=== PATIENT | male | born 1945 | race Caucasian/White ===

== ENCOUNTER 2023-10-13 14:41 | Inpatient (IN) | payer MEDICARE, OTHER, SELFPAY ==
[2023-10-12] VITALS (10 sets, daily range): BP systolic 133–156; BP diastolic 47–78; BMI 39.2; BMI 36.4
[2023-10-12 09:48] LABS: INR 1.09; PT 13.9 Sec (11.4-14.6)
[2023-10-12 09:49] LABS: ALT (SGPT) 25 U/L (0-50); APTT 26.3 Sec (23.4-35.0); AST (SGOT) 35 U/L (17-59); Albumin 3.9 g/dl (3.5-5.0); Alkaline Phosphatase 51 U/L (38-126); Blood Urea Nitrogen 29 mg/dl (9-20); Calcium 8.8 mg/dl (8.4-10.2); Carbon Dioxide 23 mmol/L (22-30); Chloride 106 mmol/L (98-107); Estimated Creatinine Clearance 93 ml/min; Glucose 208 mg/dl (70-99); Potassium 4.2 mmol/L (3.5-5.1); Sodium 140 mmol/L (135-145); Total Bilirubin 0.4 mg/dl (0.2-1.3); Total Protein 6.8 g/dl (6.3-8.2); eGFR > 60.00
--- NOTE | 2023-10-12 09:52 | ED.GENMED ---
History of Present Illness
General
Chief Complaint: Fall
Source: patient and spouse
Exam Limitations: none
Time Seen by Provider: 10/12/23 09:33
Nursing documentation reviewed up to this point in time: agreed with
Travel History
Have you had any contact with someone who has COVID-19?: No
Do you have any symptoms of coronavirus? Fever > 100 degrees, chills, cough, shortness of breath, sore throat, loss of taste or smell, muscle aches, or headache?: No
History of Present Illness
History of Present Illness:
78-year-old male with past medical history of hypertension, hyperlipidemia, CAD, Parkinson disease, dementia who presents to the emergency room accompanied by his for evaluation after a fall. Patient is somewhat limited historian due to his
dementia. He cannot exactly remember how he fell down�he says that 'they always tell me where socks or sneakers so I do not slip.' Patient's is at bedside says that she left for the gym at 7 AM and returned back at 8 AM. She says that when
she left she had given patient breakfast and was sitting at the lung room table. When she returned an hour later he was on the ground in the dining room. Patient cannot recall if he hit his head. He cannot recall if he lost consciousness. He
complains mainly of pain in his right shoulder. He denies any headache, neck pain. Denies any back pain. Denies any chest or abdominal pain. Denies any shortness of breath. Denies any pain in his lower extremities. He does report feeling
generally weak and fatigued and he has had a mild cough for the past 3 days in the setting of what he believes is a cold. Has not had any fevers or chills. Denies any shortness of breath. Patient is on aspirin but no other blood thinners.
Past History
Past History
ED Past Medical History: HTN, Hypercholesterolemia, Other and Other (, bipolar, 'Balance problems')
ED Past Surgical History: Cardiac (Stent), Cholecystectomy and Orthopedic (Back surgery 2009)
Social History
Tobacco: Non-smoker
Alcohol: Occasional
Drug: None
Personal:
Living: with family
Family History
Family History: Other (mother and uncles with brain tumors, father with a mitral valve replacement)
Review of Systems
Review of Systems
All Other Systems: ROS reviewed and negative except as documented in HPI and ROS
Constitutional: Reports fatigue; Denies fever
Respiratory: Reports cough; Denies trouble breathing
Cardiac: Denies chest pain or palpitations
ABD/GI: Denies abdominal pain, nausea or vomiting
: Denies flank pain
Musculoskeletal: Reports joint pain (Right shoulder pain); Denies neck pain or back pain
Neurological: Denies dizzy, headache, weakness or numbness
Phy Exam
Physical Exam
Physical Exam:
General: Awake, alert; no acute distress
Head: Normocephalic, minor abrasion to the top of the head
Eyes: Conjunctiva normal, pupils equal round, reactive to light bilaterally
Throat: Airway intact, handling secretions
Neck: Trachea midline, no cervical spine tenderness
Back: No tenderness in the thoracic or lumbar spine
Lungs: Clear to auscultation bilaterally, no wheezing, rales, rhonchi; occasional cough
Heart: Regular rate and rhythm, no murmurs, gallops, or rubs
Abd: Soft, non distended, nontender
Neuro: Cranial nerves grossly intact, speech fluid, motor and sensory function is intact in all extremities
Extremities: Patient has some tenderness of the anterior humeral head/upper arm on the right but no bruising or swelling; no tenderness of the scapula or clavicle; he does have pain on flexion of the right shoulder; he has no pain in the right elbow
or wrist and moves the joints comfortably without pain; rest of extremities atraumatic and he moves them through full comfortable range of motion; he has good strong pulses in all extremities including specifically a strong right radial pulse
Scores
Heart Failure Risk
Heart Failure Risk Score: Not Applicable
Heart Score for Chest Pain Patients
STEMI patient?: Not applicable
Withdrawal Assessment of Alcohol
Withdrawal Assessment Completed?: Not applicable
Course
Orders/Labs/Results
Orders:
Orders
10/12/23 09:09
EKG [Electrocardiogram (*1)] Urgent
Reason for Study: Vertigo / Dizzy
10/12/23 09:10
EKG- Treatment ONCE
10/12/23 09:11
Comprehensive Metabolic Panel Urgent
NT-proBNP Urgent
Comment: ADD ON
PTT Urgent
Prothrombin Time Urgent
Troponin I Urgent
10/12/23 09:12
Complete Blood Count/With Diff Urgent
10/12/23 09:43
CT Head W/o Iv Contrast Urgent
Comment:
Reason For Exam: unwitnessed fall, unsure LOC
CR Shoulder - Right Min 2 View Urgent
Comment:
Reason For Exam: right shoulder pain
10/12/23 09:44
CR Chest - 2 Views Urgent
Comment:
Reason For Exam: cough
10/12/23 10:00
COVID-19 Antigen Urgent
Source: Nasal Swab
Urinalysis Reflex To Culture Urgent
Date Specimen was Collected: 10/12/23
Time Specimen was Collected: 09:52
Urine Microscopic Reflex Cult Urgent
Influenza A+B Rapid Molecular Urgent
SELAM Source: Nasal Swab
Specimen Description:
10/12/23 11:49
Pt Eval And Treat Urgent
Activity Level: Ambulate
10/12/23 12:43
Add On- LAB Urgent
Tests Added?: Pro-BNP
10/12/23 14:19
Case Management Consult ONCE
Case Management Consult: Discharge Planning
Abnormal Lab Results
10/12/23 10/12/23 10/12/23
09:11 09:12 10:00
RBC 3.89 L 10^6/uL
(4.70-6.10)
Hgb 12.0 L g/dL
(13.0-18.0)
Hct 35.1 L %
(39.0-52.0)
Abs Immat Gran (auto) 0.1 H 10^3/uL
(0-0.05)
Absolute Lymphs (auto) 0.4 L 10^3/uL
(1.2-3.4)
Absolute Monos (auto) 0.8 H 10^3/uL
(0.1-0.6)
Immature Gran % 0.8 H %
(0-0.5)
Neutrophils % 79.7 H %
(42.2-75.2)
Lymphocytes % 5.9 L %
(20.5-51.1)
Monocytes % 12.9 H %
(1.7-9.3)
BUN 29 H mg/dl
(9-20)
Glucose 208 H mg/dl
(70-99)
Urine Ketones 1+ A
(Negative)
Ur Occult Blood Reflex 1+ A
(Negative)
Urine Glucose 1+ A
(Negative)
10/12/23 09:12
10/12/23 09:11
Vital Signs
Initial and Last Documented VS:
Initial Vital Signs
Temp Pulse Resp BP Pulse Ox
36.8 C 91 18 156/63 95
10/12/23 08:54 10/12/23 08:54 10/12/23 08:54 10/12/23 08:54 10/12/23 08:54
Last Documented Vital Signs
Temp Pulse Resp BP Pulse Ox
36.8 C 65 25 137/60 89
10/12/23 08:54 10/12/23 11:30 10/12/23 11:30 10/12/23 10:00 10/12/23 11:30
MDM/Problems Addressed
Differential Diagnosis Includes:
Must rule out traumatic head injury; differential for weakness and fall could include ambulatory dysfunction related to Parkinson's, infection such as pneumonia or viral illness, anemia, electrolyte derangement
MDM/Problems Addressed:
78-year-old male with history as above presents after an unwitnessed fall at home. He has also had some weakness and cough for the past few days attributed to virus. Hypertensive but otherwise normal vitals. Exam as above. Will check CT head as
he does have a minor abrasion to the crown of his head. Will check labs including a CBC and a CMP. Will check EKG. Will check a chest x-ray. Will swab for COVID and flu. Will monitor closely reassess after the above.
Labs reviewed: CBC no clinically significant abnormalities, CMP shows hyperglycemia nonfasting. Troponin sent in triage despite no chest pain and this was negative. Urinalysis negative for infection. Chest x-ray negative for infection or other
acute pathology. Shoulder x-ray shows no fracture or dislocation. CT head negative for any acute pathology. Patient's vital signs have remained stable. Suspect likely a minor shoulder contusion from his fall but no other serious injuries.
Suspect he might be increasingly weak in the setting of a mild URI versus fall related to his Parkinson's disease and chronic ambulatory dysfunction. Will have physical therapy evaluate patient here in the emergency room prior to disposition.
Patient was evaluated by physical therapy noted deconditioning and weakness and recommended placement in rehab�there is no clear medical indication for admission at this point as he is in stable vitals and is very mild cough with no signs of
pneumonia or pulmonary edema/decompensated CHF. Patient and are agreeable to rehab�discussed case with case management.
Case management reviewed case and will need prior authorization from insurance which unfortunately they were not able to get this afternoon. Will admit to hospitalist pending placement in rehab. Case discussed with hospitalist.
Chronic conditions affecting care:
Parkinson's, dementia
Acute Exacerbation and/or Progression of Chronic Illness:
Acutely hypertensive
Acute Exacerbation and/or Progression of Chronic Illness: HTN
*Radiology
Radiology exam reviewed: preliminary read by ED provider and radiology read reviewed
*Pulse Oximetry
Patient hypoxic: no
*EKG
Interpreted by ED Provider?: Yes
Heart Rate: 87
Rate: normal
Rhythm: sinus
Toney: normal axis
Interval: normal interval
QRS Pattern: normal QRS
Ischemia: no ischemia
*Critical Care Note
Total Time (30-74mins, 75-104mins- exclusive of procedures): Not Applicable
Data Reviewed
Review of Other/Old Records Reveals: Labs and Records
Source: patient, records and spouse
Patient Management
Discussion with other providers: Hospitalist (Discussed with hospitalist)
Escalation/DeEscalation of care consider admission/obs:
Admission indicated
ED Attending Note
-
Portions of this chart may have been created with voice recognition software.� Occasional wrong word or��sound alike� substitutions may have occurred due to the inherent limitations of voice recognition software.
Discharge Plan
Departure
Patient Disposition: Admit
Date of Disposition: 10/12/23
Time of Disposition: 14:44
Admit to doctor: Abhinav
Presentation/result/management discussed w/ accepting MD/DO: Hospitalist
Discharge Problem:
Viral URI, Fall, Physical deconditioning
Prescriptions:
No Action
lovastatin 40 MG tablet
40 mg PO HS
nifedipine 30 mg tablet extended release 24hr
30 mg PO DAILY
furosemide 20 mg tablet
20 mg PO DAILY
aspirin 325 mg Capsule
325 mg PO DAILY
quetiapine 100 mg Tablet
100 mg PO HS
divalproex [Depakote] 250 mg Tablet,Delayed Release (Dr/Ec)
200 mg PO HS
metoprolol succinate [Toprol XL] 50 mg Tablet Extended Release 24 Hr
50 mg PO DAILY
lamotrigine [Lamictal] 25 mg Tablet
50 mg PO BID
Rx Instructions:
2 tabs in am 3 tabs in pm
Referrals:
Chele Jules MD [Family Provider] -
Interventions
Interventions:
*Risk Screen - Suicide Last Done: 10/12/23 09:11
*General Assessment Last Done: 10/12/23 08:54
*Neglect/Abuse Screening Last Done: 10/12/23 09:11
ED- Fall Risk Assessment Last Done: 10/12/23 09:11
*ED COVID-19 Vaccine History Last Done: 10/12/23 08:54
ED-Musculoskeletal Assessment Last Done: 10/12/23 09:11
ED- Neurological Assessment Last Done: 10/12/23 09:11
ED-Skin Assessment Last Done: 10/12/23 09:11
Discharge Date and Time
Print Language: BENINESE
[2023-10-12 09:55] LABS: % Basophils 0.5 % (0-2); % Eosinophils 0.2 % (0-6); % Immature Granulocytes 0.8 % (0-0.5); % Lymphocytes 5.9 % (20.5-51.1); % Monocytes 12.9 % (1.7-9.3); % Neutrophils 79.7 % (42.2-75.2); Absolute Immature Granulocytes 0.1 10^3/uL (0-0.05); Absolute Lymphocytes 0.4 10^3/uL (1.2-3.4); Absolute Monocytes 0.8 10^3/uL (0.1-0.6); Absolute Neutrophils 5.1 10^3/uL (1.4-6.5); Hematocrit 35.1 % (39.0-52.0); Mean Corp Hgb Conc. 34.2 g/dL (33.0-37.0); Mean Corpuscular Hgb 30.8 pg (27.0-31.0); Mean Corpuscular Volume 90.2 fL (80.0-94.0); Mean Platelet Volume 9.2 fL (7.4-10.4); Nucleated Red Blood Cells % 0 % (-); Platelet Count 182 10^3/uL (130-400); Red Blood Cell Count 3.89 10^6/uL (4.70-6.10); Red Cell Dist. Width 13.6 % (11.5-14.5); White Blood Cell Count 6.4 10^3/uL (4.8-10.8)
[2023-10-12 10:01] LABS: Troponin I 0.013 ng/ml
[2023-10-12 10:22] LABS: Urine Albumin Trace (Neg - Trace); Urine Bilirubin Negative (Negative); Urine Character Clear (Clear); Urine Color Yellow; Urine Glucose 1+ (Negative); Urine Ketone 1+ (Negative); Urine Leukocyte Negative (Negative); Urine Nitrite Negative (Negative); Urine Occult Blood 1+ (Negative); Urine Specific Gravity 1.015 (<1.030); Urine Urobilinogen Negative (Neg - 1+)
[2023-10-12 10:26] LABS: COVID-19 Antigen Negative (Negative)
[2023-10-12 10:30] LABS: Urine Red Blood Cell 0-2 /HPF (0-2)
[2023-10-12 10:31] LABS: Urine Mucus Few; Urine Squamous Cell 0-2 /LPF (Few)
--- NOTE | 2023-10-12 12:38 | EDRN ---
physical therapy currently at the pts bedside
[2023-10-12 13:48] LABS: NT-proBNP 147 pg/ml
--- NOTE | 2023-10-12 14:53 | CM ---
Addendum entered by Tiffany Burleson RN 10/12/23 15:23:
Cm spoke with [facility] and he is not eligible for the waiver program.
Original Note:
CM was consulted for placement. Patient's primary insurance is Medicare and he has [facility] secondary. Patient will need authorization for placement and unlikely to happen today. CM will discuss options with and send referrals to pend for placement.
CM updated ED physician.
--- NOTE | 2023-10-12 15:23 | HPS.HSE ---
Addendum entered and electronically signed by Ignacio Valdez MD 10/12/23 15:58:
Please see update for additional addendum and for billing purpose
Original Note:
Family Physician
-
Family Physician: Cheel Jules
Chief Complaint
-
Fall
History of Present Illness
This is a 78- year- old male with a past medical history of ASCVD, hyperlipidemia, chronic lower ext edema, mild dementia, and bipolar disorder who presents today s/p fall this morning. He is accompanied by who provides some history. This
morning, his gave him breakfast around 7am and left for the gym. When the returned at 8am, she found him on the floor next to the dining table, with only half of his breakfast eaten. Per , he does have a prior history of falls with
the most previous fall last year. At this time, he had lost his balance while ambulating with his rollator. Patient does not recall any LOC or hitting his head. He does deny any changes in his vision or headache. He denies chest pain or palpitation.
He does admit to right shoulder pain but x-ray of shoulder was negative. Patient was evaluated by physical therapy in the emergency department who are recommending [facility] for continued therapy. Unfortunately unable to arrangement placement
today as unable to obtain insurance authorization.
Medical History
Past Medical History
Past Medical History: Reports Other
Additional Past Medical History:
Right Basal Ganglia Stroke
Paroxysmal Atrial Fibrillation
Coronary Artery Disease
Essential Hypertension
Parkinson's Disease
Dementia
Bipolar Disorder
Obstructive Sleep Apnea
Past Surgical History: Reports Other
Additional Past Surgical History:
Cholecystectomy
Spinal Fusion
Social History
Tobacco: Non-smoker
Alcohol: Occasional (One beer per week)
Family History
Family History: Not pertinent
Allergies / Home Medications
Allergies reflects when Allergies were last updated in [facility].
Home Medications with original date entered in [facility]
Allergy/Medication List:
Allergies
Allergy/AdvReac Type Severity Reaction Status Date / Time
No Known Allergies Allergy Verified 10/12/23 08:58
Home Medications
lovastatin 40 mg tablet 40 mg PO HS High cholesterol 06/17/11
furosemide 20 mg tablet 20 mg PO DAILY Fluid retention/Swelling 07/04/22
nifedipine 30 mg tablet,extended release 24 hr 30 mg PO DAILY Blood Pressure 07/04/22
quetiapine 100 mg tablet 100 mg PO HS Mental Health/Anxiety 10/15/22
aspirin 325 mg tablet 325 mg PO HS 10/12/23
divalproex 500 mg tablet,extended release 24 hr (Depakote ER) 2,000 mg PO HS 10/12/23
lamotrigine 25 mg tablet (Lamictal) 50 mg PO DAILY 10/12/23
lamotrigine 25 mg tablet (Lamictal) 75 mg PO HS 10/12/23
metoprolol succinate 50 mg tablet,extended release 24 hr (Toprol XL) 50 mg PO DAILY 10/12/23
therapeutic multivitamin 1 tab PO DAILY 10/12/23
Review of Systems
-
Unable to obtain full review of systems at this time due to: Dementia
Physical Exam
Vital Signs
Vital Signs
Temp Pulse Resp BP Pulse Ox
98.3 F 65 25 137/60 89
10/12/23 08:54 10/12/23 11:30 10/12/23 11:30 10/12/23 10:00 10/12/23 11:30
Physical Exam
General: Comfortable and Conversant
HEENT: Anicteric and Moist mucous membranes
Respiratory: Clear and Non Labored Respirations
Cardiac: S1/S2 and Regular Rhythm; No Murmur
GI: Soft and Non Tender
Musculoskeletal: No Clubbing, No Cyanosis and Other (+3 pitting edema bilateral lower ext which is chronic per )
Skin: Warm and Dry
Neuro: Awake, Alert, Oriented (Patient correctly states he is at [facility], that it is September 2023, and is soon) and Nonfocal/grossly intact
Laboratory Results
-
10/12/23 09:12
10/12/23 09:11
Laboratory Results
PT 13.9 Sec (11.4-14.6) 10/12/23 09:11
INR 1.09 10/12/23 09:11
APTT 26.3 Sec (23.4-35.0) 10/12/23 09:11
Total Bilirubin 0.4 mg/dl (0.2-1.3) 10/12/23 09:11
AST 35 U/L (17-59) 10/12/23 09:11
ALT 25 U/L (0-50) 10/12/23 09:11
Alkaline Phosphatase 51 U/L (38-126) 10/12/23 09:11
Troponin I 0.013 ng/ml 10/12/23 09:11
Data Reviewed
-
Lab Data: Labs Reviewed by me
Impression/Plan
-
Ambulatory Dysfunction / Frequent Falls
-Continue PT/OT
-Await insurance authorization for SNF placement
Elevated Glucose
-Check HgbA1c
Paroxysmal Atrial Fibrillation
-Patient is not on anticoagulation
-Continue metoprolol succinate
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
-Continue aspirin
Chronic Lower Extremity Edema
-Continue Furosemide
Essential Hypertension
-Continue metoprolol
-Continue nifedipine
Hyperlipidemia
-Continue lovastatin
Cognitive Impairment
-Monitor for mood/behaviors changes during hospitalization
Bipolar Disorder
-Continue Depakote. Lamictal and Seroquel
Obstructive Sleep Apnea
-Continue CPAP at 7mmHg
DVT proph: Lovenox
Code Status: Full Code
--- NOTE | 2023-10-12 15:30 | CM ---
CM spoke with patient's who is agreeable to placement. Cm sent referrals to [facility], [facility] and [facility]. CM will await acceptance.
--- NOTE | 2023-10-12 15:40 | W.PN.UPDATE ---
Update Note
Progress Note Update
I saw and examined the patient.
The [facility] H&P note was reviewed and I agree with the note.
For billing purpose
Comment:
78 male past medical history of cognitive decline, mood disorder, primary hypertension, bipolar disorder, atrial fibrillation, CAD, hyperlipidemia, lumbar spinal DJD status post fusion is presenting from home with mechanical fall. Patient was found
on the floor. Patient denies hitting his head. Patient denies loss of consciousness syncopal episode. at bedside. Patient denies any body pain. Denies any chest pain shortness of breath.
General: No Apparent Distress
HEENT: Moist Mucous Membranes
Respiratory: Clear to Auscultation
Cardiac: Regular Rhythm and S1/S2; Negative Tachycardic
GI: Soft, Nontender, Nondistended and Normal Bowel Sounds
Neuro: Awake, alert, and No Motor Deficits; Negative Tremors
Psych: Calm, pleasant
Impression
Ambulatory dysfunction
Primary hypertension
Bipolar disorder
CAD
Hyperlipidemia
Atrial fibrillation
Hx of CVA
Suspected Viral URI
Plan
PT and OT in the morning
Will require placement
Continue with home medication
CXR negative for acute pathology
CT head There are moderate changes of cortical atrophy and chronic ischemic disease. There is an old lacunar infarcts. There are no acute findings.
DVT prophylaxis
Full code discussed with spouse at bedside in detail
I spent a total of 78 minutes with the patient or on the floor. More than 50% of this time involved counseling and coordination of care.
--- NOTE | 2023-10-12 16:08 | CM ---
Addendum entered by Tiffany Burleson RN 10/12/23 16:30:
Cm sent authorization request to [facility]
FAX [phone]
Phone to check on authorization

Reference Number
[id number]
Original Note:
Patient and are agreeable to [facility]. CM will call to initiate authorization through [facility].
--- NOTE | 2023-10-12 16:44 | EDRN ---
this RN called the receiving unit and notified them that paper report was going to be tubed up
--- NOTE | 2023-10-12 17:15 | PTCARENOTE ---
10/11- 10/11- Patient transferred and oriented to unit without issue. AAOX1 at this time. Pleasantly confused, scattered thinking but redirectable to simple questions. Patient denies any current needs or complaints. Skin CDI except PVD legs with
+2 pitting edema BL lower legs and pedals. +[id number]. Med/Surg.
--- NOTE | 2023-10-12 17:15 | PTCARENOTE ---
10/11- patient transferred and oriented to unit without issue. AAOX3 at this time. Patient denies any current needs or complaints. Med/Surg.
[2023-10-12] MEDS: LOVENOX 40 MG SC (18:11)
[2023-10-12] MEDS: LAMICTAL 75 MG PO (21:57)
[2023-10-12] MEDS: LIPITOR 10 MG PO (21:57)
[2023-10-12] MEDS: ASPIRIN 325 MG PO (21:57)
[2023-10-12] MEDS: SEROQUEL 100 MG PO (21:57)
[2023-10-12] MEDS: DEPAKOTE ER (24 HR RELEASE) 2000 MG PO (21:57)
[2023-10-13] VITALS (7 sets, daily range): BP systolic 131–163; BP diastolic 55–100; PULSE 66–114; BMI 35.9
[2023-10-13] MEDS: COMPAZINE 5 MG IV (01:34)
[2023-10-13 06:27] LABS: Blood Urea Nitrogen 21 mg/dl (9-20); Calcium 8.7 mg/dl (8.4-10.2); Carbon Dioxide 25 mmol/L (22-30); Chloride 104 mmol/L (98-107); Estimated Creatinine Clearance 93 ml/min; Glucose 121 mg/dl (70-99); Potassium 4.3 mmol/L (3.5-5.1); Sodium 138 mmol/L (135-145); eGFR > 60.00
--- NOTE | 2023-10-13 06:43 | PTCARENOTE ---
Patient had second episode of emesis - yellow, small amount. Patient c/o being cold and shivering, wheezing. Assessed set of vitals, no temp. Notified COLLECTION CORRESPONDENT about emesis and no PRN neb order. Reviewing chart. Will continue to monitor.
[2023-10-13] MEDS: DUONEB 3 ML INH (07:23)
[2023-10-13] MEDS: LAMICTAL 50 MG PO (08:22)
[2023-10-13] MEDS: PROCARDIA XL (EXTENDED RELEASE) 30 MG PO (08:22)
[2023-10-13] MEDS: LASIX 20 MG PO (08:22)
[2023-10-13] MEDS: TOPROL XL 50 MG PO (08:22)
--- NOTE | 2023-10-13 10:58 | W.PN.HOSP.TC ---
Today's Communication/Plan
-
speech eval
await placement
Assessment / Plan
Assessment / Plan
General: Comfortable and Conversant
HEENT: Anicteric and Moist mucous membranes
Respiratory: Clear and Non Labored Respirations
Cardiac: S1/S2 and Regular Rhythm; No Murmur
GI: Soft and Non Tender
Musculoskeletal: No Clubbing, No Cyanosis and Other (+3 pitting edema bilateral lower ext which is chronic per )
Skin: Warm and Dry
Neuro: Awake, Alert, Oriented (Patient correctly states he is at [facility], that it is September 2023, and is soon) and Nonfocal/grossly intact
Ambulatory Dysfunction / Frequent Falls
-Continue PT/OT
-Await insurance authorization for SNF placement
Paroxysmal Atrial Fibrillation
-Patient is not on anticoagulation likely due to dementia/falls
-Continue metoprolol succinate
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
-Continue aspirin
Chronic Lower Extremity Edema
-Continue Furosemide
Essential Hypertension
-Continue metoprolol
-Continue nifedipine
Hyperlipidemia
-Continue lovastatin
Cognitive Impairment
-Monitor for mood/behaviors changes during hospitalization
-Speech eval
Bipolar Disorder
-Continue Depakote. Lamictal and Seroquel
Obstructive Sleep Apnea
-Continue CPAP at 7mmHg
DVT proph: Lovenox
Code Status: Full Code
PT/OT SNF. CM aware. await placement
Anticipated Discharge: Within 24 hours
Subjective/Interval History
-
Date of Service: October 13, 2023
Overnight with episode of vomiting x 1
no complaints this morning
Objective Data
-
Labs:
Laboratory Results
10/13/23
05:15
Sodium 138
Potassium 4.3
Chloride 104
Carbon Dioxide 25
BUN 21 H
Creatinine 0.9
Glucose 121 H
Calcium 8.7
Vital Signs:
Vital Signs
Temp Pulse Resp BP Pulse Ox
99.8 F 63 22 136/99 91
10/13/23 07:55 10/13/23 07:55 10/13/23 07:55 10/13/23 07:55 10/13/23 07:55
I&O
10/12/23 10/13/23 10/14/23
06:59 06:59 06:59
Intake Total 480 / 480
Balance 480 / 480
--- NOTE | 2023-10-13 13:38 | CM ---
Chart reviewed and still no auth for patient for skilled placement.
Plan; Skilled placement pending Auth.
[2023-10-13] MEDS: TYLENOL 650 MG PO (14:27)
--- NOTE | 2023-10-13 14:30 | PTCARENOTE ---
10/12- Patient is increasingly lethargic, T=101.9, POX=89% on RA, ST=661. Patient is reportedly producing yellowish-green sputum as per his , however not witnessed by this RN. Tylenol was administered as ordered; 2L O2 applied. Notified
Physician. Continue to monitor.
[2023-10-13] MEDS: UNASYN IV ×2 (16:16→22:19)
[2023-10-13] MEDS: LOVENOX 40 MG SC (16:16)
[2023-10-13] MEDS: ASPIRIN 325 MG PO (22:18)
[2023-10-13] MEDS: DEPAKOTE ER (24 HR RELEASE) 2000 MG PO (22:19)
[2023-10-13] MEDS: LIPITOR 10 MG PO (22:19)
[2023-10-13] MEDS: SEROQUEL 100 MG PO (22:19)
[2023-10-13] MEDS: LAMICTAL 75 MG PO (22:19)
--- NOTE | 2023-10-13 23:29 | PTCARENOTE ---
Patient unable to stand, despite assistance x2.
[2023-10-14] MEDS: UNASYN IV ×4 (04:26→22:45)
[2023-10-14 06:00] VITALS: BMI 35.6
[2023-10-14] MEDS: LAMICTAL 50 MG PO (07:46)
[2023-10-14] MEDS: PROCARDIA XL (EXTENDED RELEASE) 30 MG PO (07:47)
[2023-10-14] MEDS: TOPROL XL 50 MG PO (07:47)
[2023-10-14] MEDS: LASIX 20 MG PO (07:47)
[2023-10-14] MEDS: TYLENOL 650 MG PO ×3 (07:56→22:44)
[2023-10-14 08:00] VITALS: BP 163/82
[2023-10-14] MEDS: DUONEB 3 ML INH ×2 (08:06→15:57)
[2023-10-14 08:11] LABS: Mean Corp Hgb Conc. 33.3 g/dL (33.0-37.0); Mean Corpuscular Hgb 30.7 pg (27.0-31.0); Mean Corpuscular Volume 92.1 fL (80.0-94.0); Mean Platelet Volume 9.4 fL (7.4-10.4); Platelet Count 152 10^3/uL (130-400); Red Blood Cell Count 3.91 10^6/uL (4.70-6.10); Red Cell Dist. Width 13.5 % (11.5-14.5); White Blood Cell Count 5.9 10^3/uL (4.8-10.8)
[2023-10-14 08:49] LABS: Blood Urea Nitrogen 23 mg/dl (9-20); Calcium 8.4 mg/dl (8.4-10.2); Carbon Dioxide 31 mmol/L (22-30); Chloride 100 mmol/L (98-107); Estimated Creatinine Clearance 75 ml/min; Glucose 105 mg/dl (70-99); Potassium 3.8 mmol/L (3.5-5.1); Sodium 137 mmol/L (135-145); eGFR > 60.00
[2023-10-14 09:30] LABS: Absolute Neutrophils -Man Diff 3.8 10^3/uL (1.4-6.5); Band Neutrophils 0 % (0-3); Lymphocytes 21 % (20-51); Monocytes 13 % (2-9); Normal RBC Morphology Yes; Platelets Checked Yes; Segmented Neutrophils 66 % (42-75); Total Cells Counted 100
--- NOTE | 2023-10-14 11:25 | W.PN.HOSP.TC ---
Today's Communication/Plan
-
Continue with IV antibiotic
Follow-up on the culture data
PT and OT
Eventual placement
Assessment / Plan
Assessment / Plan
General: Comfortable and Conversant
HEENT: Anicteric and Moist mucous membranes
Respiratory: Clear and Non Labored Respirations
Cardiac: S1/S2 and Regular Rhythm; No Murmur
GI: Soft and Non Tender
Musculoskeletal: No Clubbing, No Cyanosis and Other (+3 pitting edema bilateral lower ext which is chronic per )
Skin: Warm and Dry
Neuro: Awake, Alert, Oriented (Patient correctly states he is at [facility], that it is September 2023, and is soon) and Nonfocal/grossly intact
Acute hypoxic respiratory insufficiency likely secondary aspiration pneumonia/pneumonitis
-Chest x-ray repeat with pneumonia
-Speech evaluated diet downgraded to soft and bite-size with thin liquids
-Started patient on IV Unasyn
-Blood cultures in lab
-COVID and influenza was negative
-Video swallow inpatient versus outpatient
Ambulatory Dysfunction / Frequent Falls
-Continue PT/OT
-Await insurance authorization for SNF placement
Paroxysmal Atrial Fibrillation
-Patient is not on anticoagulation likely due to dementia/falls
-Continue metoprolol succinate
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
-Continue aspirin
Chronic Lower Extremity Edema
-Continue Furosemide
Essential Hypertension
-Continue metoprolol
-Continue nifedipine
Hyperlipidemia
-Continue lovastatin
Cognitive Impairment
-Monitor for mood/behaviors changes during hospitalization
-Speech eval
Bipolar Disorder
-Continue Depakote. Lamictal and Seroquel
Obstructive Sleep Apnea
-Continue CPAP at 7mmHg
DVT proph: Lovenox
Code Status: Full Code
PT/OT SNF. CM aware. await placement
Anticipated Discharge: > 48 hours
Subjective/Interval History
-
Date of Service: October 14, 2023
No overnight events
States he is hungry and wants to eat sandwich
Spiked fever yesterday
Objective Data
-
Labs:
Laboratory Results
10/14/23
07:42
WBC 5.9
Hgb 12.0 L
Hct 36.0 L
Plt Count 152
Sodium 137
Potassium 3.8
Chloride 100
Carbon Dioxide 31 H
BUN 23 H
Creatinine 1.1
Glucose 105 H
Calcium 8.4
Vital Signs:
Vital Signs
Temp Pulse Resp BP Pulse Ox
100.4 F H 65 18 163/82 95
10/14/23 08:00 10/14/23 08:08 10/14/23 08:08 10/14/23 08:00 10/14/23 08:08
I&O
10/13/23 10/14/23 10/15/23
06:59 06:59 06:59
Intake Total 1210 / 1210
Output Total 300 / 300
Balance 910 / 910
Data Reviewed
-
Total Time Spent with Patient (in minutes): 55
--- NOTE | 2023-10-14 11:46 | PTOTSP ---
Speech Language Pathology:
Swallow Evaluation
78M with Parkinson's disease and dementia admitted s/p fall referred to PERSONAL ASSISTANT service after RN noticed coughing with PO. P/w s/s of a mild to moderately impaired oropharyngeal swallow with all textures trialed this date. Aspiration is increased 2/2
worsening CXR concerning of PNA; multiple comorbidities (PD, dementia, hx of R basal ganglia infarct, SAPNA); and overt s/s of aspiration w/ PO.
Recommendations:
1. Soft and bite sized solids (IDDSI 6), thin liquids (IDDSI 0)
2. Medications whole in puree
3. Aspiration precautions - HOB elevated 90 degrees, oral care at least 3x day, small bites, single sips, chew well, slow rate with intake, PARTIAL supervision with meals
4. Reflux precautions
5. VSE to further assess safest and least restrictive diet level
6. PERSONAL ASSISTANT service will continue to follow at the acute care level to determine safest and least restrictive diet level and provide swallow tx as needed
[2023-10-14] MEDS: LOVENOX 40 MG SC (15:33)
[2023-10-14 15:45] VITALS: BP 130/91
--- NOTE | 2023-10-14 19:06 | PTCARENOTE ---
Unable to obtain orthos today d/t drowsiness and dyspnea. Primary RN aware.
[2023-10-14] MEDS: DEPAKOTE ER (24 HR RELEASE) 2000 MG PO (22:43)
[2023-10-14] MEDS: LAMICTAL 75 MG PO (22:43)
[2023-10-14] MEDS: LIPITOR 10 MG PO (22:44)
[2023-10-14] MEDS: SEROQUEL 100 MG PO (22:45)
[2023-10-14] MEDS: ASPIRIN 325 MG PO (22:45)
[2023-10-14 23:05] VITALS: BP 100/71; BP 133/73; PULSE 84; PULSE 85
[2023-10-15] MEDS: UNASYN IV ×3 (03:10→15:00)
[2023-10-15 05:59] VITALS: BMI 35.7
[2023-10-15 07:40] VITALS: BP 160/80
[2023-10-15] MEDS: LAMICTAL 50 MG PO (07:58)
[2023-10-15] MEDS: LASIX 20 MG PO (07:58)
[2023-10-15] MEDS: PROCARDIA XL (EXTENDED RELEASE) 30 MG PO (07:58)
[2023-10-15] MEDS: TOPROL XL PO (07:59)
[2023-10-15 08:17] LABS: Hematocrit 36.8 % (39.0-52.0); Hemoglobin 12.3 g/dL (13.0-18.0); Mean Corp Hgb Conc. 33.4 g/dL (33.0-37.0); Mean Corpuscular Hgb 30.2 pg (27.0-31.0); Mean Corpuscular Volume 90.4 fL (80.0-94.0); Nucleated Red Blood Cells % 0 % (-); Red Blood Cell Count 4.07 10^6/uL (4.70-6.10); Red Cell Dist. Width 13.3 % (11.5-14.5); White Blood Cell Count 4.6 10^3/uL (4.8-10.8)
[2023-10-15 08:40] LABS: Blood Urea Nitrogen 23 mg/dl (9-20); Calcium 8.5 mg/dl (8.4-10.2); Carbon Dioxide 28 mmol/L (22-30); Chloride 103 mmol/L (98-107); Estimated Creatinine Clearance 92 ml/min; Glucose 98 mg/dl (70-99); Potassium 4.3 mmol/L (3.5-5.1); Sodium 138 mmol/L (135-145); eGFR > 60.00
[2023-10-15 09:43] LABS: Segmented Neutrophils 59 % (42-75)
[2023-10-15 09:44] LABS: Absolute Neutrophils -Man Diff 2.7 10^3/uL (1.4-6.5); Band Neutrophils 0 % (0-3); Lymphocytes 20 % (20-51); Metamyelocytes 1 % (-); Monocytes 20 % (2-9); Platelets Checked YES
[2023-10-15 09:45] LABS: Normal RBC Morphology Yes; Total Cells Counted 100
--- NOTE | 2023-10-15 10:04 | PTOTSP ---
ST Follow-Up
Pt presents with fairly functional oropharyngeal swallow parameters. Pt presented with option for regular solid diet consistency; however, pt elected to continue with SBS.
Recommendations:
- Continue with Soft Bite Sized Solids (pt preference) and thin liquids with meds as tolerated.
- General aspiration precautions: HOB upright during PO intake, small bites/sips, slow intake, alternate bites/sips, and take a break during coughing fits prior to resuming PO intake.
- ENVIRONMENTAL TECH will continue to follow while in house to ensure pt is tolerating PO diet and to determine whether or not pt would benefit from an instrumental swallow assessment.
--- NOTE | 2023-10-15 10:55 | W.PN.HOSP.TC ---
Addendum entered and electronically signed by Ignacio Valdez MD 10/15/23 16:42:
update spouse over the phone in details.
Addendum entered and electronically signed by Ignacio Valdez MD 10/15/23 14:10:
called spouse. no response. left vm.
Original Note:
Today's Communication/Plan
-
VSE in am
Wean o2
speech recs
IV abx
ongoing dispo
Assessment / Plan
Assessment / Plan
General: Comfortable and Conversant
HEENT: Anicteric and Moist mucous membranes
Respiratory: dec bs, on NC 4L
Cardiac: S1/S2 and Regular Rhythm; No Murmur
GI: Soft and Non Tender
Musculoskeletal: No Clubbing, No Cyanosis and Other (+3 pitting edema bilateral lower ext which is chronic per )
Skin: Warm and Dry
Neuro: Awake, Alert, Oriented (Patient correctly states he is at [facility], that it is September 2023, and is soon) and Nonfocal/grossly intact
Acute hypoxic respiratory insufficiency likely secondary aspiration pneumonia/pneumonitis
-Chest x-ray repeat with pneumonia
-Speech evaluated diet downgraded to soft and bite-size with thin liquids
-Started patient on IV Unasyn
-Blood cultures in lab-remains negative so far
-COVID and influenza was negative
-VSE in am
-denies tobacco abuse in past
-BC prn
Ambulatory Dysfunction / Frequent Falls
-Continue PT/OT
-Await insurance authorization for SNF placement
Paroxysmal Atrial Fibrillation
-Patient is not on anticoagulation likely due to dementia/falls
-Continue metoprolol succinate
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
-Continue aspirin full dose
Chronic Lower Extremity Edema
-Continue Furosemide
Essential Hypertension
-Continue metoprolol
-Continue nifedipine
Hyperlipidemia
-Continue lovastatin
Cognitive Impairment
-Monitor for mood/behaviors changes during hospitalization
-Speech eval
Bipolar Disorder
-Continue Depakote. Lamictal and Seroquel
Obstructive Sleep Apnea
-Continue CPAP at 7mmHg
DVT proph: Lovenox
Code Status: Full Code
PT/OT SNF. CM aware. await placement
Anticipated Discharge: 24 - 48 hours
Subjective/Interval History
-
Date of Service: October 15, 2023
Finished breakfast plate
Remains on oxygen
denies sob
afebrile
Objective Data
-
Labs:
Laboratory Results
10/15/23
07:55
WBC 4.6 L
Hgb 12.3 L
Hct 36.8 L
Plt Count
Sodium 138
Potassium 4.3
Chloride 103
Carbon Dioxide 28
BUN 23 H
Creatinine 0.9
Glucose 98
Calcium 8.5
Vital Signs:
Vital Signs
Temp Pulse Resp BP Pulse Ox
97.9 F 58 16 160/80 93
10/15/23 07:40 10/15/23 07:59 10/15/23 07:40 10/15/23 07:58 10/15/23 09:59
I&O
10/14/23 10/15/23 10/16/23
06:59 06:59 06:59
Intake Total 1210 / 1210 1080 / 1080
Output Total 300 / 300 1500 / 1500
Balance 910 / 910 -420 / -420
Data Reviewed
-
Total Time Spent with Patient (in minutes): 55
[2023-10-15 11:00] VITALS: BP 154/67; PULSE 96; O2SAT 96
[2023-10-15] MEDS: TYLENOL 650 MG PO (14:59)
[2023-10-15 15:23] VITALS: BP 177/70
[2023-10-15] MEDS: LOVENOX 40 MG SC (17:27)
[2023-10-15] MEDS: ZOSYN 50 IV ×2 (17:28→23:07)
--- NOTE | 2023-10-15 21:02 | PTCARENOTE ---
RN took care of patient from 7p-9p. Assessment did not change from previous shift. Patient resting in bed with call connors in hand. Report handed off to next nurse.
[2023-10-15] MEDS: LIPITOR 10 MG PO (21:12)
[2023-10-15] MEDS: DEPAKOTE ER (24 HR RELEASE) 2000 MG PO (21:12)
[2023-10-15] MEDS: SEROQUEL 100 MG PO (21:14)
[2023-10-15] MEDS: ASPIRIN 325 MG PO (21:14)
[2023-10-15] MEDS: LAMICTAL 75 MG PO (21:14)
[2023-10-15 23:10] VITALS: BP 123/57
[2023-10-16] MEDS: ZOSYN 50 IV ×3 (05:37→17:20)
[2023-10-16 06:00] VITALS: BMI 35.7
[2023-10-16] MEDS: LAMICTAL 50 MG PO (07:38)
[2023-10-16] MEDS: TOPROL XL 50 MG PO (07:38)
[2023-10-16] MEDS: PROCARDIA XL (EXTENDED RELEASE) 30 MG PO (07:38)
[2023-10-16] MEDS: LASIX 20 MG PO (07:39)
[2023-10-16 07:52] VITALS: BP 139/58
[2023-10-16 08:14] LABS: % Basophils 0.6 % (0-2); % Eosinophils 1.3 % (0-6); % Immature Granulocytes 0.4 % (0-0.5); % Lymphocytes 28.1 % (20.5-51.1); % Monocytes 17.6 % (1.7-9.3); Absolute Eosinophils 0.1 10^3/uL (0-0.7); Absolute Lymphocytes 1.5 10^3/uL (1.2-3.4); Absolute Monocytes 0.9 10^3/uL (0.1-0.6); Absolute Neutrophils 2.7 10^3/uL (1.4-6.5); Hematocrit 34.3 % (39.0-52.0); Hemoglobin 11.9 g/dL (13.0-18.0); Mean Corp Hgb Conc. 34.7 g/dL (33.0-37.0); Mean Corpuscular Hgb 30.5 pg (27.0-31.0); Mean Corpuscular Volume 87.9 fL (80.0-94.0); Mean Platelet Volume 9.7 fL (7.4-10.4); Nucleated Red Blood Cells % 0 % (-); Platelet Count 177 10^3/uL (130-400); Red Cell Dist. Width 13.2 % (11.5-14.5); White Blood Cell Count 5.3 10^3/uL (4.8-10.8)
[2023-10-16 08:47] LABS: Blood Urea Nitrogen 22 mg/dl (9-20); Calcium 8.7 mg/dl (8.4-10.2); Carbon Dioxide 27 mmol/L (22-30); Chloride 101 mmol/L (98-107); Estimated Creatinine Clearance 92 ml/min; Glucose 94 mg/dl (70-99); Potassium 3.9 mmol/L (3.5-5.1); Sodium 137 mmol/L (135-145); eGFR > 60.00
--- NOTE | 2023-10-16 10:29 | PTOTSP ---
Video Swallow Study
Summary: Patient presents with functional swallowing despite mild oral/pharyngeal stage differences. No aspiration occurred. Coughing was noted which was not related to swallowing function.
Recommend:
1. IDDSI Level 6 Soft Bite Sized Solids (per patient preference) and thin liquids
2. Medications as best tolerated
3. Strategies: upright during PO intake, small bites/sips, slow intake, liquid wash as needed, take break during coughing fits prior to resuming PO intake.
4. No further dysphagia therapy warranted. Will follow up for cognitive linguistic evaluation as able/appropriate.
[2023-10-16 12:32] VITALS: BP 159/64; PULSE 60; O2SAT 94
[2023-10-16 15:48] VITALS: BP 156/61
--- NOTE | 2023-10-16 16:30 | W.PN.HOSP.TC ---
Today's Communication/Plan
-
Possible discharge tomorrow
GRETCHEN bandages
Assessment / Plan
Assessment / Plan
CVS: S1-S2 normal
Chest: coarse BS
Abdomen: Soft, NT / Bowel sounds present
Extremities: mild edema,
EP TECH: Non focal exam, Cognitive dysfunction
#Acute hypoxic respiratory insufficiency likely secondary aspiration pneumonia/pneumonitis
-Chest x-ray repeat with pneumonia
-Speech evaluated diet downgraded to soft and bite-size with thin liquids
-Started patient on IV Unasyn
-Blood cultures in lab-remains negative so far
-COVID and influenza was negative
-VSE noted-OK for same diet
-denies tobacco abuse in past
#Ambulatory Dysfunction / Frequent Falls
-Continue PT/OT
#Paroxysmal Atrial Fibrillation
-Patient is not on anticoagulation likely due to dementia/falls
-Continue metoprolol succinate
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
-Continue aspirin full dose
#Chronic Lower Extremity Edema
-Continue Furosemide
#Essential Hypertension
-Continue metoprolol
-Continue nifedipine
#Hyperlipidemia
-Continue lovastatin
#Cognitive Impairment
-Monitor for mood/behaviors changes during hospitalization
-Speech eval
#Bipolar Disorder
-Continue Depakote. Lamictal and Seroquel
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
#Obstructive Sleep Apnea
-Continue CPAP at 7mmHg
#DVT proph: Lovenox
#Code Status: Full Code
PT/OT SNF. CM aware. await placement
Called . Went to message
Anticipated Discharge: Within 24 hours
Subjective/Interval History
-
Date of Service: October 16, 2023
Objective Data
-
Labs:
Laboratory Results
10/16/23
07:38
WBC 5.3
Hgb 11.9 L
Hct 34.3 L
Plt Count 177
Sodium 137
Potassium 3.9
Chloride 101
Carbon Dioxide 27
BUN 22 H
Creatinine 0.9
Glucose 94
Calcium 8.7
Vital Signs:
Vital Signs
Temp Pulse Resp BP Pulse Ox
98.1 F 63 16 156/61 95
10/16/23 15:48 10/16/23 15:48 10/16/23 15:48 10/16/23 15:48 10/16/23 15:48
I&O
10/15/23 10/16/23 10/17/23
06:59 06:59 06:59
Intake Total 1080 / 1080 1780 / 1780
Output Total 1500 / 1500 2400 / 2400
Balance -420 / -420 -620 / -620
[2023-10-16] MEDS: LOVENOX 40 MG SC (17:20)
[2023-10-16] MEDS: ASPIRIN 325 MG PO (21:00)
[2023-10-16] MEDS: DEPAKOTE ER (24 HR RELEASE) 2000 MG PO (21:01)
[2023-10-16] MEDS: LAMICTAL 75 MG PO (21:02)
[2023-10-16] MEDS: LIPITOR 10 MG PO (21:02)
[2023-10-16] MEDS: SEROQUEL 100 MG PO (21:03)
[2023-10-16 23:00] VITALS: BP 163/63
[2023-10-17] MEDS: ZOSYN 50 IV ×3 (00:30→11:08)
[2023-10-17 06:00] VITALS: BMI 34.5
[2023-10-17 07:40] VITALS: BP 168/61
[2023-10-17] MEDS: LAMICTAL 50 MG PO (07:40)
[2023-10-17] MEDS: TOPROL XL 50 MG PO (07:40)
[2023-10-17] MEDS: LASIX 20 MG PO (07:40)
[2023-10-17] MEDS: PROCARDIA XL (EXTENDED RELEASE) 30 MG PO (07:41)
--- NOTE | 2023-10-17 12:20 | CM ---
Addendum entered by Nicci Mallory 10/17/23 13:47:
Patient and seen, agreeable to discharge to [facility], 4:30 ambulance transport scheduled. IMM signed placed in chart.
Report: [phone]

Original Note:
Patient seen bedside with , discussed PT recommendations of SNF, [facility] can offer a bed. Patients not agreeable to [facility], reports she would like another chest xray and does not feel comfortable with patient discharging to
SNF today. reports patient is on oxygen and would like him off oxygen before discharging. CM discussed patient can discharge to a SNF on oxygen, reports she understands that but would like patient off oxygen. Patient requesting referrals
to [facility], [facility], [facility], and [facility]. TT sent to [facility] with request of patients . CM will continue to follow for discharge planning needs.
Plan; SNF pending accepting facility.
[2023-10-17 15:09] VITALS: BP 128/55
--- NOTE | 2023-10-17 15:35 | W.PN.HOSP.TC ---
Today's Communication/Plan
-
Discharge
Assessment / Plan
Assessment / Plan
CVS: S1-S2 normal
Chest: coarse BS
Abdomen: Soft, NT / Bowel sounds present
Extremities: mild edema,
[employer]OCI[employer] PATHOLOGY: Non focal exam, Cognitive dysfunction
#Acute hypoxic respiratory insufficiency likely secondary aspiration pneumonia/pneumonitis
-Chest x-ray repeat with pneumonia
-Speech evaluated diet downgraded to soft and bite-size with thin liquids
-Started change to Augmentin for discharge
-Blood cultures in lab-remains negative so far
-COVID and influenza was negative
-VSE noted-OK for same diet
-denies tobacco abuse in past
#Ambulatory Dysfunction / Frequent Falls
-Continue PT/OT
#Paroxysmal Atrial Fibrillation
-Patient is not on anticoagulation likely due to dementia/falls
-Continue metoprolol succinate
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
-Continue aspirin full dose
#Chronic Lower Extremity Edema
- says he has compression stockings as OP
-She will bring to rehab
-Advised to look into [facility] as OP with PCP
-Continue Furosemide
#Essential Hypertension
-Continue metoprolol
-Continue nifedipine
#Hyperlipidemia
-Continue lovastatin
#Cognitive Impairment
-Monitor for mood/behaviors changes during hospitalization
-Speech eval
#Bipolar Disorder
-Continue Depakote. Lamictal and Seroquel
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
#Obstructive Sleep Apnea
-Continue CPAP at 7mmHg
#DVT proph: Lovenox
#Code Status: Full Code
PT/OT SNF. CM aware. await placement
Called . Updated
D/W RN
Discharge time 36 min
Anticipated Discharge: Today
Subjective/Interval History
-
Date of Service: October 17, 2023
Objective Data
-
Vital Signs:
Vital Signs
Temp Pulse Resp BP Pulse Ox
98.1 F 64 17 128/55 92
10/17/23 15:09 10/17/23 15:09 10/17/23 15:09 10/17/23 15:09 10/17/23 15:09
I&O
10/16/23 10/17/23 10/18/23
06:59 06:59 06:59
Intake Total 1780 / 1780 2019 / 2019 480 / 480
Output Total 2400 / 2400 1700 / 1700 575 / 575
Balance -620 / -620 320 / 320 -95 / -95
--- NOTE | 2023-10-17 15:46 | W.DS.TRANS ---
Addendum entered and electronically signed by Rogerio Higgins MD 10/17/23 18:30:
Dictation- [id number]
Original Note:
DC Summary - [employer]
-
Discharge Instructions:
Discharge Diagnosis/Procedures Acute hypoxic insufficiency secondary to
aspiration pneumonitis, ambulatory dysfunction,
paroxysmal atrial fibrillation, ASCVD, history
of previous right basal ganglia stroke, chronic
low extremity edema, hypertension,
hyperlipidemia, cognitive impairment, bipolar
disorder, sleep apnea
Diet 2 Gram Sodium
Additional Diets IDDSI 6 soft and bite sized
Activity As tolerated
Additional Activity Aspiration precautions
Driving Restrictions No driving
Blood Work Hemoglobin A1c in 3 months
Others Tests Repeat chest x-ray 4 to 6 weeks
Other Services PT,OT
Instructions:
Stand-Alone Forms:
Changes to Home Medications: Yes
Discharge Medications:
DC Medications w/original date entered in [employer]
lovastatin 40 mg tablet 40 mg PO HS High cholesterol 06/17/11
furosemide 20 mg tablet 20 mg PO DAILY Fluid retention/Swelling 07/04/22
nifedipine 30 mg tablet,extended release 24 hr 30 mg PO DAILY Blood Pressure 07/04/22
quetiapine 100 mg tablet 100 mg PO HS Mental Health/Anxiety 10/15/22
divalproex 500 mg tablet,extended release 24 hr (Depakote ER) 2,000 mg PO HS Mental Health/Anxiety 10/12/23
lamotrigine 25 mg tablet (Lamictal) 50 mg PO DAILY Mental Health/Anxiety 10/12/23
lamotrigine 25 mg tablet (Lamictal) 75 mg PO HS Mental Health/Anxiety 10/12/23
metoprolol succinate 50 mg tablet,extended release 24 hr (Toprol XL) 50 mg PO DAILY Blood Pressure 10/12/23
therapeutic multivitamin 1 tab PO DAILY Supplement 10/12/23
amoxicillin 875 mg-potassium clavulanate 125 mg tablet 1 tab PO BID Infection #7 tabs 10/17/23
aspirin 325 mg tablet 325 mg PO HS Daily #0 tabs 05/29/24
benzonatate 200 mg capsule 200 mg PO TID Cough #30 caps 10/17/23
guaifenesin 600 mg tablet, extended release 12 hr (Mucinex) 600 mg PO BID Cough #20 tabs 10/17/23
ipratropium 0.5 mg-albuterol 3 mg (2.5 mg base)/3 mL nebulization soln 3 ml inhalation R Q4HPRN PRN SOB or wheezing #0 mL 10/17/23
Home Medication Changes
new
amoxicillin 875 mg-potassium clavulanate 125 mg tablet 1 tab PO BID Infection #7 tabs 10/17/23
benzonatate 200 mg capsule 200 mg PO TID Cough #30 caps 10/17/23
guaifenesin 600 mg tablet, extended release 12 hr (Mucinex) 600 mg PO BID Cough #20 tabs 10/17/23
ipratropium 0.5 mg-albuterol 3 mg (2.5 mg base)/3 mL nebulization soln 3 ml inhalation R Q4HPRN PRN SOB or wheezing #0 mL 10/17/23
Pending Results: No
[2023-10-17] MEDS: PREVNAR 20 0.5 ML IM (16:15)
[2023-10-17] MEDS: ZOSYN IV (18:36)
[2023-10-17] MEDS: LOVENOX SC (18:36)
--- NOTE | 2023-10-26 07:24 | PN.CDI ---
Addendum entered and electronically signed by Rogerio Higgins MD 10/26/23 10:52:
Documentation is complete at this time.
Original Note:
CDI
- -
CDI:
Physician Documentation Request
Admit Date: 10/13/23 14:41
Dear Doctor Gisela,
Please review the following and provide your response in the progress notes.
Clinical Indicators:
ER, 10/11
#Viral URI, Fall, Physical deconditioning
10/13/23 14:30 (created 10/13/23 14:39) - Patient Care Note
#10/12- Patient is increasingly lethargic, T=101.9, POX=89% on RA, HD=332.
#Patient is reportedly producing yellowish-green sputum as per his ,
#...however not witnessed by this RN.
#...Tylenol was administered as ordered; 2L O2 applied.
PN, 10/16
#Acute hypoxic respiratory insufficiency likely
#...secondary aspiration pneumonia/pneumonitis
#-Chest x-ray repeat with pneumonia
Discharge Summary, 10/16
#...found to have aspiration pneumonitis for which
#...he was started on antibiotics, which has been changed to p.o. now.
#1. Amoxicillin 875 mg-potassium clavulanate 125 mg tablet 1 tab PO
BID Infection #7 tabs 10/17/23.
Selected Entries
10/14/23
08:00
Temp 100.4 F H
Pulse 82
Resp Rate 34
SaO2 93
Nasal Cannula flow liters per minute 3
Selected Entries
10/15/23
15:23
Temp 100.4 F H
Pulse 76
Resp Rate 16
SaO2 96
Nasal Cannula flow liters per minute 5
Selected Entries
10/15/23
07:40
Flow liters per minute # 4
Oxygen Mode of Delivery CPAP
Medications:
Piperacillin Sod/Tazobactam Sod (Zosyn) 3.375 gram in 50 mls @ 100 mls/hr IV Q6H BEN
Last Admin: 10/17/23 18:36 Dose: Not Given
Administered, 10/14, 10/15, 10/16
Patient admitted with multiple complex issues(ambulatory dysfunction/frequent falls, cognitive impairment, Parkinson's), if possible, please clarify the diagnosis/diagnoses suspected to have contributed to the current admission and the additional
evaluation, monitoring and treatment rendered
Multifactorial, progression of cognitive impairment, Parkinson's, URI, aspiration pneumonia, increased O2 needs, etc.
Sepsis evolved after admission
Aspiration pneumonia/pneumonitis only
Other(please specify)
Sepsis
- Systemic manifestations of infection, with 2 or more SIRS criteria which include:
- Fever >100.4 degrees F or hypothermia < 96.8 degrees F
- Leukocytosis - WBC > 12,000 or leukopenia - WBC < 4,000 or > 10% bands
- Tachycardia > 90 beats per minute
- Tachypnea - RR > 20 breaths per minute or PaCO2 , 32mmHg
Source: Merck Manual 2013
- Indicate the known or suspected underlying infection, such as UTI, pneumonia or cellulitis
Use of terms such as suspected, likely, concern for, or probable (associated with a specific diagnosis that is being evaluated, monitored, or treated as if it exists) are acceptable and can be coded in the inpatient setting, when documented at the
time of discharge.
Thank you,
Brynn Martínez RN BSN CCDS
CDI Specialist
please contact via tiger text
Please use your independent medical judgment in providing your response.
== END 2023-10-17 19:00 | DRG 179 ==
LOC: 4 WEST ACU 14:41
PROVIDERS: Emergency Medicine; Physician Assistant Medical; ADMITTING PHYSICIAN Hospitalist; ATTENDING PHYSICIAN Hospitalist; EMERGENCY PHYSICIAN Emergency Medicine; FAMILY PHYSICIAN Family Medicine
PROC: 5A09357 Assistance with Respiratory Ventilation, Less than 24 Consecutive Hours, Continuous Positive Airway Pressure (ICD-10-PCS; 2023-10-13)
PROC: 3E0234Z Introduction of Serum, Toxoid and Vaccine into Muscle, Percutaneous Approach (ICD-10-PCS; 2023-10-17)
DX: J69.0 Pneumonitis due to inhalation of food and vomit (principal); G20.A1 Parkinson's disease without dyskinesia, without mention of fluctuations; R53.81 Other malaise; R60.0 Localized edema; R26.2 Difficulty in walking, not elsewhere classified; M25.511 Pain in right shoulder; I10 Essential (primary) hypertension; E78.00 Pure hypercholesterolemia, unspecified; F31.9 Bipolar disorder, unspecified; F03.A0 Unspecified dementia, mild, without behavioral disturbance, psychotic disturbance, mood disturbance, and anxiety; I25.10 Atherosclerotic heart disease of native coronary artery without angina pectoris; R09.02 Hypoxemia; R06.89 Other abnormalities of breathing; R73.9 Hyperglycemia, unspecified; G47.33 Obstructive sleep apnea (adult) (pediatric); I48.0 Paroxysmal atrial fibrillation; R41.89 Other symptoms and signs involving cognitive functions and awareness; W07.XXXA Fall from chair, initial encounter; Y93.89 Activity, other specified; Y92.001 Dining room of unspecified non-institutional (private) residence as the place of occurrence of the external cause; Z23 Encounter for immunization; Z11.52 Encounter for screening for COVID-19; Z79.82 Long term (current) use of aspirin; Z95.5 Presence of coronary angioplasty implant and graft; Z82.49 Family history of ischemic heart disease and other diseases of the circulatory system; Z91.81 History of falling; Z86.73 Personal history of transient ischemic attack (TIA), and cerebral infarction without residual deficits; Z98.1 Arthrodesis status
CPT/HCPCS: 70450; 71046; 73030; 74230; 80048; 80053; 81003; 81015; 83036; 83880; 84484; 85025; 85610; 85730; 87040; 87502; 87811; 90677; 92523; 92526; 92610; 92611; 93005; 94640; 94660; 96374; 97166; 97530; 99285; G0009

== ENCOUNTER → 2023-11-29 14:27 | Outpatient (REF) | payer MEDICARE, OTHER, SELFPAY | LOC: HWRAD 14:27 | PROVIDERS: ATTENDING PHYSICIAN Family Medicine | DX: J69.0 Pneumonitis due to inhalation of food and vomit (principal) | CPT/HCPCS: 71046 ==

== ENCOUNTER 2024-10-16 09:37 | Emergency (ER) | payer MEDICARE, OTHER, SELFPAY ==
[2024-10-16] VITALS (11 sets, daily range): BP systolic 130–168; BP diastolic 52–64; PULSE 60–77
[2024-10-16 10:11] LABS: % Basophils 0.3 % (0-2); % Eosinophils 0.2 % (0-6); % Immature Granulocytes 0.3 % (0-0.5); % Lymphocytes 10.8 % (20.5-51.1); % Monocytes 14.1 % (1.7-9.3); % Neutrophils 74.3 % (42.2-75.2); Absolute Lymphocytes 0.9 10^3/uL (1.2-3.4); Absolute Monocytes 1.2 10^3/uL (0.1-0.6); Absolute Neutrophils 6.4 10^3/uL (1.4-6.5); Hematocrit 40.3 % (39.0-52.0); Hemoglobin 13.7 g/dL (13.0-18.0); Mean Corpuscular Hgb 31.2 pg (27.0-31.0); Mean Corpuscular Volume 91.8 fL (80.0-94.0); Mean Platelet Volume 9.3 fL (7.4-10.4); Nucleated Red Blood Cells % 0 % (-); Platelet Count 217 10^3/uL (130-400); Red Blood Cell Count 4.39 10^6/uL (4.70-6.10); Red Cell Dist. Width 13.2 % (11.5-14.5); White Blood Cell Count 8.6 10^3/uL (4.8-10.8)
[2024-10-16 10:32] LABS: ALT (SGPT) 21 U/L (0-50); AST (SGOT) 27 U/L (17-59); Albumin 4.3 g/dl (3.5-5.0); Alkaline Phosphatase 62 U/L (38-126); Blood Urea Nitrogen 21 mg/dl (9-20); Calcium 9.7 mg/dl (8.4-10.2); Carbon Dioxide 28 mmol/L (22-30); Chloride 105 mmol/L (98-107); Estimated Creatinine Clearance 84 ml/min; Glucose 110 mg/dl (70-99); Potassium 4.5 mmol/L (3.5-5.1); Sodium 142 mmol/L (135-145); Total Bilirubin 0.6 mg/dl (0.2-1.3); Total Protein 7.5 g/dl (6.3-8.2); eGFR > 60.00
--- NOTE | 2024-10-16 10:37 | ED.GENMED ---
History of Present Illness
General
Chief Complaint: Weakness
Source: patient, family and ambulance crew
Exam Limitations: clinical condition and dementia
Time Seen by Provider: 10/16/24 10:16
Nursing documentation reviewed up to this point in time: agreed with except (EMS gave different story than )
History of Present Illness
History of Present Illness:
PT IS A 79 Y/O M
h/o bipolar disorder, CAD, HTN, HLD
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
AMS this morning
apparently did not come to bed last night which isn't totally atypical but not as common
said she woke him up at 8 am and he had trouble getting up but he was able to get up and start walking with his rollator; she saw that his depends were soaked hwich is atypical
he was able to make it to the bathroom and she was helping him get dressed, and he complained his L thigh was hurting a little. she noticed his gait was a little off. but quickly got him dressed (which she normally doesn't have to help him with),
had to tie his shoe (which she normally doesn't need to do)
and the got the elevator down to go outside for the dentist appt. as he was walking out of the elevator she noticed his knees were starting to buckle and he wasn't going to be able to support himself. he said something to her and it was garbled
which is unusual. she looked at him and he seemed to have a subtl downturning corner of his L motuh.
she turned the rollator so he could sit on it and she pushed it but it started to roll and got stuck in the mulch outside; no falls
then called 911
the speech problem was brief; the facial droop to her looks resolved
he is back to baseline
no headache, vision chagnes, back pain, cp, sob, focal weakness
no h/o UTIs
no changes to psych meds
has had similar episodes like this the past 2 years x 2 total and was told probably TIA; he was put on full dose asa.
Past History
Past History
ED Past Medical History: HTN, Hypercholesterolemia, Other and Other (, bipolar, 'Balance problems')
ED Past Surgical History: Cardiac (Stent), Cholecystectomy and Orthopedic (Back surgery 2009)
Social History
Tobacco: Non-smoker
Alcohol: Occasional
Drug: None
Personal:
Living: with family
Family History
Family History: Other (mother and uncles with brain tumors, father with a mitral valve replacement)
Review of Systems
Review of Systems
Allergies reviewed?: Yes
All Other Systems: Not applicable
Phy Exam
Physical Exam
Physical Exam:
GENERAL: Alert , in no apparent distress
HEAD: NCAT
FACE: ??? subtle L flattening nasolabial fold and slight down L corner mouth while at rest but can elevate it; very sutble ( feels back to baseline)
EYE: pupils equal and reactive, no nystagmus, no photophobia
NECK: Supple,full rom, nontender
ENT: o/p clr, mmm.
CARDIAC: Regular rate and rhythm . no edema
LUNGS: Clear breath sounds bilaterally, no acute respiratory distress, no wheezes/rales/rhonchi
ABDOMEN: Soft, without focal tenderness, no r/g, no cvat
NEUROLOGICAL: Alert and orientedx 4, cn intact, VERY MIIMAL POSSIBLE L CORNER MOUTH LOWER ( says this is normal) 4+/5 strength in UE/LE, sensation intact, romberg neg, ambulates with some assistance/rollator neg pronator drift
SKIN: Warm and dry, skin intact.
MUSCULOSKELETAL: No edema, well perfused.
PSYCH: Normal and appropriate interaction.
Scores
NIH Stroke Score
Level of Consciousness: 0 - Alert
LOC Questions: 0-Answers both correctly
LOC Commands: 0-Performs both correctly
Best Horizontal Gaze: 0-Normal
Visual Kuhn: 0=Normal, no visual loss
Facial Palsy: 0=Normal, symmetrical
Motor - Right Arm: 0=No drift 10 seconds
Motor - Left Arm: 0=No drift 10 seconds
Motor - Right Le-No drift 5 seconds
Motor - Left Le-No drift 5 seconds
Limb Ataxia: 0-Absent
Sensation: 0-Normal
Best Language: 0-No aphasia
Dysarthria: 0-Normal
Extinction and Inattention: 0-No abnormality
NIH Total Score:: 0
Course
Orders/Labs/Results
Orders:
Orders
10/16/24 09:56
Electrocardiogram (*1) Urgent
Reason for Study: Other
Other Reason for Exam: Possible Sepsis
Cardiac Monitoring- Treatment ONCE
EKG- Treatment ONCE
IV Insert/Care/Rem.- Treatment PRN
O2 Therapy [RESP] Urgent
Titrate/Wean O2 to maintain O2 sat greater than (%): 93
Special Instructions: TO MAINTAIN CONTINUOUS O2 SATS > OR = 93%
Pulse Ox/cont/shift [RESP] Urgent
Quantity: 1
Special Instructions: CONTINUOUS
10/16/24 09:57
Complete Blood Count/With Diff Urgent
Comprehensive Metabolic Panel Urgent
10/16/24 10:19
CT Head W/o Iv Contrast Urgent
Comment:
Reason For Exam: stroke like symptoms per ; parkinsons;
10/16/24 10:48
Urinalysis Reflex To Culture Urgent
Date Specimen was Collected: 10/16/24
Time Specimen was Collected: 10:20
Urine Microscopic Reflex Cult Urgent
Valproic Acid Level [Depakane] Urgent
10/16/24 11:10
Consult Neurology [NEUROLOGY CONSULT] Urgent
Consulting Provider: Herb Dodge
Was physician already notified: Yes
10/16/24 11:25
Orthostatic Vital Signs As Directed
Orthostatic VS Frequency: BID
Comment: lying flat x 3 mins then check, seated 3 minutes check, stand 3 mins check
10/16/24 11:48
Orthostatic VS- Treatment ONCE
10/16/24 12:38
PT Consult [Pt Eval And Treat] Urgent
Activity Level: With Assistance
10/16/24 13:39
Case Management Consult ONCE
Case Management Consult: Discharge Planning
Abnormal Lab Results
10/16/24 10/16/24
09:57 10:48
RBC 4.39 L 10^6/uL
(4.70-6.10)
MCH 31.2 H pg
(27.0-31.0)
Absolute Lymphs (auto) 0.9 L 10^3/uL
(1.2-3.4)
Absolute Monos (auto) 1.2 H 10^3/uL
(0.1-0.6)
Lymphocytes % 10.8 L %
(20.5-51.1)
Monocytes % 14.1 H %
(1.7-9.3)
BUN 21 H mg/dl
(9-20)
Glucose 110 H mg/dl
(70-99)
Urine Albumin (Reflex) 2+ A
(Neg - Trace)
10/16/24 09:57
10/16/24 09:57
Vital Signs
Initial and Last Documented VS:
Initial Vital Signs
Temp Pulse Resp BP Pulse Ox
36.7 C 68 16 144/52 95
10/16/24 09:47 10/16/24 09:47 10/16/24 09:47 10/16/24 09:47 10/16/24 09:47
Last Documented Vital Signs
Temp Pulse Resp BP Pulse Ox
36.7 C 59 25 142/54 91
10/16/24 09:47 10/16/24 15:45 10/16/24 15:45 10/16/24 15:00 10/16/24 15:45
MDM/Problems Addressed
Differential Diagnosis Includes:
TIA, generalized weakness, deconditioning, Depakote toxicity, medication interaction,
MDM/Problems Addressed:
abelardo lowe 79 y/o M bipolar disorder, several psych meds and subsequent parkonsonism
htn, hld, CAD
last seen normal last night
woke up in the living room, usually sleeps in bedroom; woke him up and he was weaker than normal, had urinary incontinence (wears depends but usually just leaks a little and can get self to bathroom)
shuffling gait
then had brief dysarthria/garbled speech and noticed L facial droop; called 911
the speech and droop seem to have resovled
head ct lacunar infarct R basal ganglia unchnaged; nothing acute
depakote level normal
porthos neg
ua neg
pt tried to ambulate and seems rather unstteady
concerned about taking him home
PT eval recommends inpt rehab
cm consulted
Apparently the patient has Medicare and unfortunately it would be a financial responsibility on the patient for a 3-day stay in the hospital, he does not meet criteria for inpatient admission it would be observation only. Case management discussed
this with the family and the made the decision to take him home. After watching him walk around with the PT she thinks that he is at his baseline ambulation, and she feels like he can go home. I did review this case again with the neurologist
Dr. Hebert to make sure he did not feel like he needed more neurologic imaging and he agreed
Continue aspirin therapy
*Critical Care Note
Total Time (30-74mins, 75-104mins- exclusive of procedures): Not Applicable
ED Attending Note
-
Portions of this chart may have been created with voice recognition software.� Occasional wrong word or��sound alike� substitutions may have occurred due to the inherent limitations of voice recognition software.
Discharge Plan
Departure
Patient Disposition: Home (Routine Discharge)
Date of Disposition: 10/16/24
Time of Disposition: 16:22
Patient with high blood pressure during this ER visit?: No
Condition: Fair
Covid-19: Not Applicable
Discharge Problem:
Weakness, Parkinsonism, Ambulatory dysfunction
Instructions: Generalized Weakness (DC)
Prescriptions:
No Action
lovastatin 40 MG tablet
40 mg PO HS
nifedipine 30 mg tablet extended release 24hr
30 mg PO DAILY
quetiapine 100 mg Tablet
100 mg PO HS
metoprolol succinate [Toprol XL] 50 mg Tablet Extended Release 24 Hr
50 mg PO DAILY
lamotrigine [Lamictal] 25 mg Tablet
50 mg PO DAILY
therapeutic multivitamin Tablet
1 tab PO DAILY
lamotrigine [Lamictal] 25 mg Tablet
75 mg PO HS
divalproex [Depakote ER] 500 mg Tablet Extended Release 24 Hr
2,000 mg PO HS
aspirin 325 mg Tablet
325 mg PO HS Qty: 0 0RF
furosemide [Lasix] 40 mg Tablet
40 mg PO DAILY
acetaminophen [Tylenol Extra Strength] 500 mg Tablet
1,000 mg PO QIDPRN PRN (Reason: mild pain)
Referrals:
Chele Jules MD [Family Provider, Family Practice] - Follow up in 2-3 days
Activity Restrictions/Additional Instructions:
Were not sure what happened today but he had no signs of a new stroke, no infectious concerns, he was seen by physical therapy and it was recommended that he go to a skilled rehab to get him a little stronger. Perhaps some of this could have been
as a result of not wearing his CPAP last night. However because of the financial responsibility you opted to take him home at this time. We have placed a case management consult for some home care. Please call 911 if any changes occur that are
concerning or if he has any falls etc. Otherwise follow-up with your neurologist and his family doctor regarding his parkinsonism.
Interventions
Interventions:
*Risk Screen - Suicide Last Done: 10/16/24 09:47
*General Assessment Last Done: 10/16/24 09:47
*Neglect/Abuse Screening Last Done: 10/16/24 09:47
*ED- Fall Risk Assessment Last Done: 10/16/24 09:47
*ED COVID-19 Vaccine History Last Done: 10/16/24 09:47
ED- Cardiac Assessment Last Done: 10/16/24 09:57
ED- Neurological Assessment Last Done: 10/16/24 09:57
ED- Pulmonary Assessment Last Done: 10/16/24 09:57
Discharge Date and Time
Print Language: HUNGARIAN
[2024-10-16 11:08] LABS: Urine Albumin 2+ (Neg - Trace); Urine Bilirubin Negative (Negative); Urine Character Clear (Clear); Urine Color Yellow; Urine Glucose Negative (Negative); Urine Ketone Negative (Negative); Urine Leukocyte Negative (Negative); Urine Nitrite Negative (Negative); Urine Occult Blood Negative (Negative); Urine Urobilinogen Negative (Neg - 1+)
--- NOTE | 2024-10-16 11:12 | CON.NEURO4 ---
Addendum entered and electronically signed by Herb Dodge MD 10/16/24 16:33:
Studies reviewed.
I have personally examined the patient. I reviewed and agree with the MONUMENT STONECUTTER's Note.
My addenda:
Awake, alert, interactive. No acute distress.
Speech intact.
Follows 2-step requests w/o difficulty. No tremor.
Extra-ocular movements grossly intact.
Facial movements full and symmetric. Hearing intact to normal conversational volume.
Normal UE movements bilaterally.
Neck: full ROM.
Chest: no dyspnea
Heart: no JVD
Ext: (-) Clubbing, (-) Cyanosis, (-) Edema
IMPRESSIONS/RECOMMENDATIONS:
Recurrent difficulty with gait dysfunction in a patient with prior history of falling
Differential diagnosis includes orthostasis although not obviously demonstrated currently, apraxia, sensory polyneuropathy. There is no clear evidence of a focal neurological problem at this time and therefore unlikely stroke
Continue physical therapy
Check blood work for potential metabolic abnormalities
Consider decreasing dosing of aspirin which is most likely being utilized for cardiac stent from 325 mg to 81 mg routinely
D/W patient
Will continue to follow as needed.
Original Note:
Documented by User: Arabella Prado NP 10/16/24 13:05
Consultation - Neurology 4
-
CONSULTING PHYSICIAN: Herb Dodge MD
REFERRING PHYSICIAN: ER/Cinthia Lewis PA-C
DICTATED BY: WILLIAM Moser
DATE/TIME OF REQUEST: 10/16/24
DATE/TIME OF CONSULTATION: 10/16/24
Reason for Consultation: Weakness
History of Present Illness:
This is a 79-year-old left-handed male who has presented to the hospital with report of bilateral lower extremity weakness, dysarthria, and possible slight left facial weakness. Patient was previously seen by our Neurology service in 2022 for
similar symptoms.
From my previous evaluation on 07/05/22:
'This is a 76-year-old right-handed male who has presented to the hospital as a prehospital stroke alert due to aphasia and difficulty walking at 1630 yesterday. The patient recalls walking down a hallway and bumping into ching, 'not feeling
right,' and going to sit down on the couch. When he went to sit on the couch he felt like his legs just collapsed instead of easing him down. He cannot recall any speech changes, but reports his was worried about him and called 911. Currently,
he reports feeling back to his baseline. He has Parkinson's disease and is followed by Dr. Hagan at [facility]. At baseline, he reports that he gets confused frequently and also has balance issues. He goes to occupational therapy to help with his hand
and overall movement coordination. He denies any history of stroke or speaking difficulty in the past. He thinks he started a new neurological medication two weeks ago, but he cannot recall what this was. He takes aspirin 325mg daily and reports
that he used to be on Coumadin for Afib, he cannot recall why this change was made. He denies any vision changes, swallowing difficulty, speech difficulty, weakness, vomiting, shortness of breath, chest pain, or palpitations. He reports chronic
urinary frequency/urgency.'
Patient had an MRI brain on 07/03/22 that was negative for any acute findings but demonstrated a chronic right caudate lacunar infarct. CTA head/neck was unremarkable.
Patient's provides a history since our previous encounter that Neurology Dr. Hagan ruled-out Parkinson's disease and reported that his PD symptoms were due to his bipolar medications. She also reports that he reportedly has no history of Afib.
He had a DVT in his leg years ago and has been on a full dose aspirin since then.
Yesterday (10/15/24), the patient got a pneumonia vaccine and his notes that he seemed 'slower' than his baseline. Last night he slept downstairs, which is not completely unusual. This morning (10/16/24), she woke him up around 0800. He had
trouble getting up from his recliner and reported left thigh discomfort. She had to help him get dressed and tie his shoes to go to the dentist. He was then walking down the [place] with his rollator and he reports his legs felt wobbly like they
couldn't support him and they started to buckle in. She then noted that his speech sounded slurred and his left mouth appeared slightly droopy, prompting her to call 911. CT head was obtained on arrival and is negative for any acute findings. His
slurred speech has resolved and sitting in bed he appears at his baseline. He notes that is he tries to walk, his legs will feel week. He currently has physical therapy coming to the house because of his chronic leg weakness. He denies any headache,
dizziness, and numbness. He notes intermittently coughing when eating crunchy foods. He hasn't missed any doses of his medications.
Past Medical History: Parkinsonism from bipolar medications, cognitive impairment, sleep apnea, HTN, HLD, CAD, bipolar disorder, chronic gait dysfunction, paroxysmal Afib ( reports this is inaccurate), chronic lower extremity edema
Surgical History: Cardiac stent, cholecystectomy, back surgery
Family History: Reviewed and noncontributory.
Social History: Occasional alcohol, denies tobacco and illicit drug use.
Allergies: No known allergies.
Home Medications: See below.
Review of Symptoms:
Patient denies any fever, headache, chest pain, shortness of breath, GI or symptoms.
�Per the HPI.�All systems are reviewed negative except above.
Physical Exam:
The patient is afebrile, abdomen is nondistended, breathing is unlabored, skin is warm and dry, +2 RLE/+1 LLE edema, PVD discoloration.
NIH Stroke Scale:
I performed the NIH stroke scale on the patient on 10/16/24 at 1115. The patient scored 0 points on the NIH stroke scale assessment, which were assigned as follows: See below.
Neurologic Examination:
The patient is awake, alert and oriented to person and place, and time. He is able to follow commands and answer questions appropriately. There is no aphasia or dysarthria. +Masked facies. On cranial nerve assessment, pupils are 3 mm bilateral,
round and reactive to light and accommodation. Visual kuhn are full. Extraocular movements are intact. Facial sensations are intact and bilaterally symmetrical, there is no apparent facial asymmetry. Hearing is intact bilaterally to normal
conversation volume. Tongue palate and uvula are midline. Sternocleidomastoid strengths are full bilaterally. Motor strengths are 5/5 bilateral upper and 5-/5 bilateral lower extremities on medical research Pokagon scale. There is no drift or
involuntary movement noted. Deep tendon reflexes are 1+ bilateral upper and lower extremities and Babinski is absent bilaterally. There was no extinction noted on double simultaneous stimulation. Coordination is intact by finger to nose bilaterally.
Lab Results: See below.
Neuro Imaging:
1. CT Head 10/16/24: No acute intracranial abnormalities appreciated. Atrophy and small vessel change. Lacunar infarct within the right basal ganglia, unchanged. No acute infarct appreciated.
Differentials for the patient's presentation include:
1. Orthostatic hypotension likely producing worsening of chronic bilateral lower extremity weakness and transient dysarthria.
2. Multiple similar events over several years, not supportive of TIA. Very low concern for stroke.
3. Toxic metabolic encephalopathy possibly contributing to symptoms. Valproic acid level is normal.
4. Parkinsonism.
Patient has the following risk factors for their symptoms: Polypharmacy, chronic leg weakness
Recommendations:
-Check orthostatic vital signs as ordered.
-Metabolic workup per primary team.
-Continue physical therapy.
-Continue aspirin daily, necessity of full dose is unclear.
-Follow-up with Neurology Dr. Hagan as an outpatient.
Discussed patient care with: Dr. Dodge, the patient, patient's
Vital Signs and Labs
-
Vital Signs and Labs:
Vital Signs
Temp Pulse Resp BP Pulse Ox
98.1 F 59 21 168/60 93
10/16/24 09:47 10/16/24 11:06 10/16/24 11:06 10/16/24 11:06 10/16/24 10:31
Lab Results
10/16/24 09:57
10/16/24 09:57
Sodium 142 mmol/L (135-145) 10/16/24 09:57
Potassium 4.5 mmol/L (3.5-5.1) 10/16/24 09:57
BUN 21 mg/dl (9-20) H 10/16/24 09:57
Glucose 110 mg/dl (70-99) H 10/16/24 09:57
Calcium 9.7 mg/dl (8.4-10.2) 10/16/24 09:57
Medications
-
Home Medications
�Medication �Instructions �Recorded
lovastatin 40 mg tablet 40 mg PO HS High cholesterol 06/17/11
furosemide 20 mg tablet 20 mg PO DAILY Fluid 07/04/22
retention/Swelling
nifedipine 30 mg tablet,extended 30 mg PO DAILY Blood Pressure 07/04/22
release 24 hr
quetiapine 100 mg tablet 100 mg PO HS Mental Health/Anxiety 10/15/22
divalproex 500 mg tablet,extended 2,000 mg PO HS Mental 10/12/23
release 24 hr (Depakote ER) Health/Anxiety
lamotrigine 25 mg tablet (Lamictal) 50 mg PO DAILY Mental 10/12/23
Health/Anxiety
lamotrigine 25 mg tablet (Lamictal) 75 mg PO HS Mental Health/Anxiety 10/12/23
metoprolol succinate 50 mg 50 mg PO DAILY Blood Pressure 10/12/23
tablet,extended release 24 hr
(Toprol XL)
therapeutic multivitamin 1 tab PO DAILY Supplement 10/12/23
amoxicillin 875 mg-potassium 1 tab PO BID Infection #7 tabs 10/17/23
clavulanate 125 mg tablet
aspirin 325 mg tablet 325 mg PO HS Daily #0 tabs 10/17/23
benzonatate 200 mg capsule 200 mg PO TID Cough #30 caps 10/17/23
guaifenesin 600 mg tablet, 600 mg PO BID Cough #20 tabs 10/17/23
extended release 12 hr (Mucinex)
ipratropium 0.5 mg-albuterol 3 mg 3 ml inhalation R Q4HPRN PRN SOB 10/17/23
(2.5 mg base)/3 mL nebulization or wheezing #0 mL
soln
NIH Stroke Score
Subsequent NIH Scale
Date of Subsequent NIH Scale: 10/16/24
Time of Subsequent NIH Scale: 11:15
NIH Stroke Score
Level of Consciousness: 0 - Alert
LOC Questions: 0-Answers both correctly
LOC Commands: 0-Performs both correctly
Best Horizontal Gaze: 0-Normal
Visual Kuhn: 0=Normal, no visual loss
Facial Palsy: 0=Normal, symmetrical
Motor - Right Arm: 0=No drift 10 seconds
Motor - Left Arm: 0=No drift 10 seconds
Motor - Right Le-No drift 5 seconds
Motor - Left Le-No drift 5 seconds
Limb Ataxia: 0-Absent
Sensation: 0-Normal
Best Language: 0-No aphasia
Dysarthria: 0-Normal
Extinction and Inattention: 0-No abnormality
NIH Total Score:: 0

Documented by User: Herb Dodge MD 10/16/24 16:16
NIH Stroke Score
NIH Stroke Score
NIH Total Score:: 0
[2024-10-16 11:18] LABS: Urine Mucus Few; Urine Red Blood Cell 0-2 /HPF (0-2); Urine Squamous Cell 0-2 /LPF (Few); Urine White Cell 0-2 /HPF (0-5)
[2024-10-16 11:43] LABS: Depakane 89.6 ug/ml (50.0-120.0)
--- NOTE | 2024-10-16 16:14 | CM ---
Case Management consult completed at bedside with patient and in the ED- Bed 38
pharmacy verified: [facility] @ [address] [place] [address]
Patient lives with ; one floor condo; elevator access
PLOF: at baseline, patient reported he is independent with personal care; ambulates with a Rollator; does not drive; needs assistance putting on his compression socks
[facility] utilization in September 2023 @ [facility]
Currently getting PT in the home from [facility] and wishes to continue with their services
will transport home; family will help getting him out of the car into the condo
Plan: Discharge to home with resumption of Home PT from [facility]
CM faxed CM referral form to [facility] at #[phone]
ED community health nursing director instructed to fax Discharge Summary to [facility] @ #[phone] when available on the chart
== END 2024-10-16 16:47 | disposition home or self-care (01) ==
LOC: EMR 09:37
PROVIDERS: Physician Assistant; CONSULT PHYSICIAN Psychiatry & Neurology Neurology; EMERGENCY PHYSICIAN Student in an Organized Health Care Education/Training Program; FAMILY PHYSICIAN Family Medicine
DX: R53.1 Weakness (principal); G20.A1 Parkinson's disease without dyskinesia, without mention of fluctuations; R26.2 Difficulty in walking, not elsewhere classified; F02.83 Dementia in other diseases classified elsewhere, unspecified severity, with mood disturbance; F31.9 Bipolar disorder, unspecified; I25.10 Atherosclerotic heart disease of native coronary artery without angina pectoris; I10 Essential (primary) hypertension; E78.00 Pure hypercholesterolemia, unspecified; G47.30 Sleep apnea, unspecified; I48.0 Paroxysmal atrial fibrillation; R47.01 Aphasia; Z79.01 Long term (current) use of anticoagulants; Z79.82 Long term (current) use of aspirin; Z90.49 Acquired absence of other specified parts of digestive tract; Z95.5 Presence of coronary angioplasty implant and graft
CPT/HCPCS: 99284; 70450; 80053; 80164; 81003; 81015; 85025; 93005

== ENCOUNTER 2024-12-07 12:10 | Emergency (ER) | payer MEDICARE, OTHER, SELFPAY ==
[2024-12-07 12:14] VITALS: BP 153/58
[2024-12-07 15:24] VITALS: BP 145/60
--- NOTE | 2024-12-07 16:04 | ED.GENMED ---
History of Present Illness
General
Chief Complaint: Skin Problem
Source: patient and spouse
Exam Limitations: none
Time Seen by Provider: 12/07/24 15:01
Nursing documentation reviewed up to this point in time: agreed with
History of Present Illness
History of Present Illness:
79 yo male w h/o dementia, Parkinsons, CPAP, HTN, HLD, TN, Anxiety, bipolar presents with who states she is concerned about a blood clot LLE. history of chronic leg swelling and that his legs are 'always a little swollen.' Four days ago, he
sustained a fall while attempting to go to the bathroom, resulting in an abrasion on the same leg. His primary care physician was seen two days after the incident, who evaluated the leg and reassured him.
The patient has a known history of a prior blood clot in the leg and a wound that took two and a half years to heal. Currently, the main concern is ensuring the new wound does not become similarly problematic. states the lower leg redness and
swelling is worse than usual since the fall, with a small open area on inner ankle area. There has been no fever/chills. Denies CP, SOB.
Past History
Past History
ED Past Medical History: HTN, Hypercholesterolemia, Psychiatric (anxiety/bipolar), Other (Parkinson's, sleep apnea/CPAP, ) and Other (, bipolar, 'Balance problems')
ED Past Surgical History: Cardiac (Stent), Cholecystectomy and Orthopedic (Back surgery 2009)
Social History
Tobacco: Non-smoker
Alcohol: Occasional
Drug: None
Personal:
Living: with family
Family History
Family History: Other (mother and uncles with brain tumors, father with a mitral valve replacement)
Review of Systems
Review of Systems
Allergies reviewed?: Yes
All Other Systems: ROS reviewed and negative except as documented in HPI and ROS
Constitutional: Denies fever or chills
Respiratory: Denies trouble breathing
Cardiac: Denies chest pain
ABD/GI: Denies abdominal pain or nausea
: Denies dysuria or difficulty voiding
Musculoskeletal: Reports other (pain left knee after fall)
Skin: Reports other (swelling, redness LLE worse since fall x2 7 and 5 days ago.)
Neurological: Denies headache
Phy Exam
Physical Exam
Physical Exam:
GENERAL: No acute distress. A&Ox3.
CONSTITUTIONAL: Afebrile.
EYES: clear, conjunctivae normal
ENMT: moist mucus membranes
RESPIRATORY: Regular respirations, nonlabored, lungs clear.
CARDIOVASCULAR: Regular rate and rhythm, no murmurs, no rubs.
GI: Soft, nontender, normal BS
MUSCULOSKELETAL: No bony tenderness about the left knee or ankle or great toe. Adequate ROM/flexion of left knee independently. Well perfused. Bilateral lymphedema L>R. LLE more red, swollen than right.
SKIN: Warm, dry. LLE with chronic discoloration, +2 swollen more than opposite leg. Mild warmth and redness. Small abrasion medial ankle covered with band aid. Foot is normal color, warm. Good pedal pulse. Toes warm.
PSYCH: Normal mood and affect. Well kept, interactive and appropriate
NEUROLOGIC: Awake, alert and oriented. No focal neurological deficits
Course
Orders/Labs/Results
Orders:
Orders
12/07/24 12:22
US Periph Venous LOWER Ext LT Urgent
Comment:
Reason For Exam: swelling, calf pain
Vital Signs
Initial and Last Documented VS:
Initial Vital Signs
Temp Pulse Resp BP Pulse Ox
97.4 F 61 18 153/58 96
12/07/24 12:14 12/07/24 12:14 12/07/24 12:14 12/07/24 12:14 12/07/24 12:14
Last Documented Vital Signs
Temp Pulse Resp BP Pulse Ox
97.6 F 64 16 145/60 96
12/07/24 15:24 12/07/24 15:24 12/07/24 15:24 12/07/24 15:24 12/07/24 16:07
MDM/Problems Addressed
Differential Diagnosis Includes:
1. Cellulitis
2. Superficial thrombophlebitis
3. Deep vein thrombosis (despite negative ultrasound)
4. Abrasion with secondary infection
5. Exacerbation of chronic venous insufficiency
6. Contusion of the knee
7. Osteoarthritis of the knee
8. Soft tissue injury
9. Peripheral vascular disease
10. Bursitis of the knee
MDM/Problems Addressed:
79 yo male w h/o dementia, Parkinsons, CPAP, HTN, HLD, TN, Anxiety, bipolar presents with who states she is concerned about a blood clot LLE. history of chronic leg swelling and that his legs are 'always a little swollen.' Four days ago, he
sustained a fall while attempting to go to the bathroom, resulting in an abrasion on the same leg. His primary care physician was seen two days after the incident, who evaluated the leg and reassured him.
The patient has a known history of a prior blood clot in the leg and a wound that took two and a half years to heal. Currently, the main concern is ensuring the new wound does not become similarly problematic. states the lower leg redness and
swelling is worse than usual since the fall, with a small open area on inner ankle area. There has been no fever/chills. Denies CP, SOB.
Afebrile, NAD
No systemic infectious symptoms.
US neg for DVT.
Plan: Treat
- A prescription for doxycycline 100 mg twice a day for 10 days was sent to the patients pharmacy to prevent infection.
- Instructions were given to return if the redness spreads more than two inches beyond the marked area or if there is development of fever, chills, or worsening symptoms.
- Marked the current extent of redness on the leg for monitoring any increase.
*Pulse Oximetry
SaO2: 96
Oxygen Mode of Delivery: Room air
Patient hypoxic: not evaluated
*Critical Care Note
Total Time (30-74mins, 75-104mins- exclusive of procedures): Not Applicable
Patient Management
Social determinants of health affecting care: Strong social support ( very attentive)
ED Attending Note
-
Portions of this chart may have been created with voice recognition software.� Occasional wrong word or��sound alike� substitutions may have occurred due to the inherent limitations of voice recognition software.
Discharge Plan
Departure
Patient Disposition: Home (Routine Discharge)
Date of Disposition: 12/07/24
Time of Disposition: 15:13
Patient with high blood pressure during this ER visit?: No
Condition: Fair
Discharge Problem:
Cellulitis of left lower extremity without foot
Instructions: Wound Care (DC), Cellulitis (Skin Infection), Adult (DC)
Prescriptions:
New
doxycycline hyclate 100 mg tablet
100 mg PO BID Qty: 20 0RF
No Action
lovastatin 40 MG tablet
40 mg PO HS
nifedipine 30 mg tablet extended release 24hr
30 mg PO DAILY
quetiapine 100 mg Tablet
100 mg PO HS
metoprolol succinate [Toprol XL] 50 mg Tablet Extended Release 24 Hr
50 mg PO DAILY
lamotrigine [Lamictal] 25 mg Tablet
50 mg PO DAILY
therapeutic multivitamin Tablet
1 tab PO DAILY
lamotrigine [Lamictal] 25 mg Tablet
75 mg PO HS
divalproex [Depakote ER] 500 mg Tablet Extended Release 24 Hr
2,000 mg PO HS
aspirin 325 mg Tablet
325 mg PO HS Qty: 0 0RF
furosemide [Lasix] 40 mg Tablet
40 mg PO DAILY
acetaminophen [Tylenol Extra Strength] 500 mg Tablet
1,000 mg PO QIDPRN PRN (Reason: mild pain)
Referrals:
Chele Jules MD [Family Provider, Family Practice] - Follow up in 10 days
Activity Restrictions/Additional Instructions:
As we discussed, your ultrasound shows no clots.
I sent a prescription to your pharmacy for the antibiotic doxycycline to take twice a day for 10 days.
Return here immediately if the red area spreads more than 2 inches up from the hodges area, you develop a fever, vomiting, chills or feeling sicker in any way
Interventions
Interventions:
*Risk Screen - Suicide Last Done: 12/07/24 12:14
*General Assessment Last Done: 12/07/24 12:14
*ED COVID-19 Vaccine History Last Done: 12/07/24 12:14
*Nursing Disposition Last Done: 12/07/24 15:24
Discharge Date and Time
Discharge Date/Time: 12/07/24 15:26
Print Language: MONGOLIAN
== END 2024-12-07 15:26 | disposition home or self-care (01) ==
LOC: EMR 12:10
PROVIDERS: EMERGENCY PHYSICIAN Emergency Medicine; FAMILY PHYSICIAN Family Medicine
DX: L03.116 Cellulitis of left lower limb (principal); E78.00 Pure hypercholesterolemia, unspecified; G20.A1 Parkinson's disease without dyskinesia, without mention of fluctuations; F02.83 Dementia in other diseases classified elsewhere, unspecified severity, with mood disturbance; G47.30 Sleep apnea, unspecified; I10 Essential (primary) hypertension; Z95.5 Presence of coronary angioplasty implant and graft
CPT/HCPCS: 99284; 93971

== ENCOUNTER 2025-01-01 06:28 | Inpatient (IN) | payer MEDICARE, OTHER, SELFPAY ==
[2025-01-01] VITALS (14 sets, daily range): BP systolic 119–165; BP diastolic 50–71; BMI 34.1; BMI 33.8
[2025-01-01] MEDS: DUONEB 3 ML INH ×2 (04:03→08:40)
[2025-01-01 04:11] LABS: Hematocrit 36.4 % (39.0-52.0); Hemoglobin 12.4 g/dL (13.0-18.0); Mean Corp Hgb Conc. 34.1 g/dL (33.0-37.0); Mean Corpuscular Volume 90.5 fL (80.0-94.0); Nucleated Red Blood Cells % 0 % (-); Platelet Count 191 10^3/uL (130-400); Red Cell Dist. Width 13.0 % (11.5-14.5)
[2025-01-01 04:21] LABS: COVID-19 Antigen Negative (Negative)
--- NOTE | 2025-01-01 04:34 | ED.GENMED ---
History of Present Illness
General
Chief Complaint: Cough
Source: patient, spouse and ambulance crew
Exam Limitations: none
Time Seen by Provider: 01/01/25 03:31
Nursing documentation reviewed up to this point in time: agreed with
History of Present Illness
History of Present Illness:
The patient is a 79-year-old male with history of parkinsonism, bipolar disorder, cognitive impairment, sleep apnea, hypertension, hyperlipidemia, CAD, chronic gait dysfunction, chronic lower extremity edema, resides at home with his . He
presents via EMS with a productive cough. The symptoms began Sunday, 3-1/2 days ago with cold-like symptoms and nasal congestion. By late Sunday, a non-productive cough developed, which progressed to a productive cough by Sunday. The patient
visited urgent care on Sunday, yesterday, where his temperature was 99�F, and a streptococcal test was negative. The urgent care physician diagnosed him with bronchitis and started him on Augmentin and Tessalon. No chest X-ray was performed.
Thus far has had 2 doses of Augmentin.
Last night, before going to bed, the patient was given his medications, including Depakote. The patient, who typically sleeps in a chair, was found struggling to get up and was unable to stand, leading to a call to 911. The patient has been coughing
up yellow sputum but denies being short of breath. His appetite has decreased over the past couple of days with complaints of moderate sore throat. He has had no vomiting. No diarrhea. No chest pain no abdominal pain.
No close contacts with similar symptoms. No recent travel.
He does note some chronic bilateral lower extremity edema, stable and unchanged. No history of CHF.
Upon arrival, noted to be moderately hypoxic with pulse ox of 88 to 89% on room air. Placed on nasal cannula oxygen.
Past History
Past History
ED Past Medical History: CAD, HTN, Hypercholesterolemia, Psychiatric (anxiety/bipolar), Other (Parkinson's, sleep apnea/CPAP) and Other (, bipolar, 'Balance problems')
ED Past Surgical History: Cardiac (Stent), Cholecystectomy and Orthopedic (Back surgery 2009)
Social History
Tobacco: Non-smoker
Alcohol: Occasional
Drug: None
Personal:
Living: with family
Employment: Retired
Family History
Family History: Other (mother and uncles with brain tumors, father with a mitral valve replacement)
Phy Exam
Physical Exam
Physical Exam:
General: 79-year-old obese gentleman appears his stated age. Awake and alert, moderately ill in appearance. Mild resting tachypnea. Frequent moist cough productive of yellowish sputum. is accompanying.
Skin: Mildly hot to touch, dry, normal color.
Head: Normocephalic, atraumatic.
Neck: Supple, trachea midline.
Eye, Ear, Nose, Mouth, and Throat: Oral mucosa moist. Minimal posterior pharyngeal injection without edema nor exudate nor ulcerations.
Cardiovascular: Normal peripheral perfusion, +1-2 pitting edema of bilateral lower extremities.
Respiratory: Mild resting tachypnea, frequent cough productive of yellowish phlegm, bibasilar Rales right greater than left.
Gastrointestinal: Abdomen is rotund, nondistended, nontender, decreased appetite reported.
Back: Normal range of motion, normal alignment.
Musculoskeletal: Normal range of motion, normal strength, noted difficulty getting up from a seated position.
Neurological: Alert and oriented to person, place, time, and situation, no focal neurological deficit observed.
Psychiatric: Cooperative, appropriate mood & affect.
Course
Orders/Labs/Results
Orders:
Orders
01/01/25 03:52
CR Chest - 2 Views Urgent
Comment:
Reason For Exam: cough, SOB, fever
01/01/25 03:53
O2 Therapy [RESP] Urgent
Nasal Cannula Liter Flow: 2 LPM
Titrate/Wean O2 to maintain O2 sat greater than (%): 92
01/01/25 03:55
Electrocardiogram (*1) Urgent
Reason for Study: Shortness of Breath
EKG- Treatment ONCE
01/01/25 03:56
Ipratropium/Albuterol Sulfate [Duoneb] 3 ml INH R NOW STA
01/01/25 03:57
COVID-19 Antigen Urgent
Source: Nasal Swab
Complete Blood Count/With Diff Urgent
Comprehensive Metabolic Panel Urgent
Lactic Acid Urgent
Influenza A+B Rapid Molecular Urgent
SELAM Source: Nasal Swab
Specimen Description:
01/01/25 04:00
Sputum Culture [Respiratory Culture/Gram Stain] Urgent
SELAM Source: Sputum
Specimen Description:
Date Specimen was Collected: 01/01/25
Time Specimen was Collected: 03:56
01/01/25 04:49
Troponin I Urgent
01/01/25 04:52
Acetaminophen [Tylenol] 1,000 mg PO NOW STA
CefTRIAXone [Rocephin] 1,000 mg IV NOW STA
Doxycycline [Vibramycin] 100 mg PO NOW STA
01/01/25 05:00
Blood Culture Q30M
SELAM Source: Blood/Venous
Specimen Description:
01/01/25 05:30
Blood Culture Q30M
SELAM Source: Blood/Venous
Specimen Description:
Abnormal Lab Results
01/01/25
03:57
RBC 4.02 L 10^6/uL
(4.70-6.10)
Hgb 12.4 L g/dL
(13.0-18.0)
Hct 36.4 L %
(39.0-52.0)
Absolute Lymphs (auto) 0.7 L 10^3/uL
(1.2-3.4)
Absolute Monos (auto) 1.0 H 10^3/uL
(0.1-0.6)
Neutrophils % 76.1 H %
(42.2-75.2)
Lymphocytes % 9.3 L %
(20.5-51.1)
Monocytes % 13.9 H %
(1.7-9.3)
BUN 22 H mg/dl
(9-20)
Glucose 115 H mg/dl
(70-99)
01/01/25 03:57
01/01/25 03:57
Vital Signs
Temp: 100.9 F
Initial and Last Documented VS:
Initial Vital Signs
Temp Pulse Resp Pulse Ox
98.1 F 76 18 90
01/01/25 03:22 01/01/25 03:22 01/01/25 03:22 01/01/25 03:22
Last Documented Vital Signs
Temp Pulse Resp BP Pulse Ox
100.9 F H 93 26 144/51 94
01/01/25 04:56 01/01/25 04:00 01/01/25 04:00 01/01/25 04:00 01/01/25 04:48
MDM/Problems Addressed
Differential Diagnosis Includes:
- The Differential Diagnosis includes, in no particular order and is not limited to:
1. Pneumonia
2. Acute bronchitis
3. Chronic obstructive pulmonary disease exacerbation
4. Congestive heart failure
5. Pulmonary embolism
6. Aspiration pneumonitis
7. Tuberculosis
8. Viral infection (e.g., influenza, COVID-19)
9. Asthma exacerbation
10. Lung neoplasm
MDM/Problems Addressed:
Acute: Productive cough with suspected pneumonia, acute hypoxic respiratory failure, bronchitis, difficulty standing from seated position, decreased appetite.
Although initial vital signs note normal oral temperature. Patient is short of breath and clinically highly suspect febrile as skin is moderately warm to touch.
Concern for pneumonia, sepsis.
Will check labs including lactic acid. Sputum culture. Will check COVID and influenza for completeness sake.
Rapid strep negative yesterday at urgent care, no indication to repeat.
Will check chest x-ray, EKG.
Will trial DuoNeb nebulizer for cough, shortness of breath.
Acute Exacerbation and/or Progression of Chronic Illness: HTN, CAD, Neurological disorder and Psychiatric illness
*Radiology
Radiology exam reviewed: preliminary read by ED provider
*Pulse Oximetry
SaO2: 94
Nasal Cannula flow liters per minute: 2
Patient hypoxic: yes
*EKG
Interpreted by ED Provider?: Yes
Interpretation: abnormal
Comparison EKG: changes noted (Sinus tachycardia 104 has replaced normal sinus rhythm September 2024. Minimal ST downsloping laterally, anteriorly new compared to previous.)
Rate: tachycardiac
Rhythm: sinus
[place]: normal axis
Interval: normal interval
QRS Pattern: normal QRS
Ischemia: non-specific ST changes
*Topology Professor Interpretation
Rate: tachycardiac
Interpretation: abnormal
Rhythm: sinus
*Critical Care Note
Total Time (30-74mins, 75-104mins- exclusive of procedures): Not Applicable
Update Note
Update Note:
04:45
Chest x-ray shows left lower lobe infiltrate. Stable cardiomegaly. No evidence of CHF and no prior history of CHF.
Labs remarkable for normal white blood cell count, mild but stable anemia.
Chemistries are unremarkable. Lactic acid is normal.
COVID and flu testing are negative.
EKG shows mild sinus tachycardia with mild nonspecific ST downsloping anteriorly inferolaterally. New compared to previous September 2024. He continues to deny chest pain. Will check troponin.
Sputum cultures pending.
Patient resting comfortably, currently 5 L nasal cannula. Pulse ox drops into the 80s when asleep. He does have history of obstructive sleep apnea, uses CPAP at home.
Temperature 100.9 �F. Will add blood cultures.
Will initiate Rocephin and doxycycline for coverage of community-acquired pneumonia.
Due to acute hypoxic respiratory failure requiring supplemental oxygen, generalized weakness, will require acute hospitalization.
ED Attending Note
-
Portions of this chart may have been created with voice recognition software.� Occasional wrong word or��sound alike� substitutions may have occurred due to the inherent limitations of voice recognition software.
Discharge Plan
Departure
Patient Disposition: Admit
Date of Disposition: 01/01/25
Time of Disposition: 04:56
Admit to: Med/Surg
Admit to doctor: Coleman
Presentation/result/management discussed w/ accepting MD/DO: Hospitalist
Condition: Fair
Discharge Problem:
Community acquired pneumonia, Acute hypoxemic respiratory failure, Fever rule out sepsis
Prescriptions:
No Action
lovastatin 40 MG tablet
40 mg PO HS
nifedipine 30 mg tablet extended release 24hr
30 mg PO DAILY
quetiapine 100 mg Tablet
100 mg PO HS
metoprolol succinate [Toprol XL] 50 mg Tablet Extended Release 24 Hr
50 mg PO DAILY
lamotrigine [Lamictal] 25 mg Tablet
50 mg PO DAILY
therapeutic multivitamin Tablet
1 tab PO DAILY
lamotrigine [Lamictal] 25 mg Tablet
75 mg PO HS
divalproex [Depakote ER] 500 mg Tablet Extended Release 24 Hr
2,000 mg PO HS
aspirin 325 mg Tablet
325 mg PO HS Qty: 0 0RF
furosemide [Lasix] 40 mg Tablet
40 mg PO DAILY
acetaminophen [Tylenol Extra Strength] 500 mg Tablet
1,000 mg PO QIDPRN PRN (Reason: mild pain)
doxycycline hyclate 100 mg tablet
100 mg PO BID Qty: 20 0RF
Referrals:
UNKNOWN - PT DOES,NOT KNOW [Family Provider]
Interventions
Interventions:
*Risk Screen - Suicide Last Done: 01/01/25 03:22
*General Assessment Last Done: 01/01/25 03:22
*Neglect/Abuse Screening Last Done: 01/01/25 03:22
*ED- Fall Risk Assessment Last Done: 01/01/25 03:22
*ED COVID-19 Vaccine History Last Done: 01/01/25 03:22
ED- Pulmonary Assessment Last Done: 01/01/25 04:13
Discharge Date and Time
Print Language: LITHUANIAN
[2025-01-01 04:38] LABS: ALT (SGPT) 14 U/L (0-50); AST (SGOT) 23 U/L (17-59); Albumin 3.9 g/dl (3.5-5.0); Alkaline Phosphatase 95 U/L (38-126); Blood Urea Nitrogen 22 mg/dl (9-20); Calcium 9.0 mg/dl (8.4-10.2); Carbon Dioxide 25 mmol/L (22-30); Chloride 105 mmol/L (98-107); Estimated Creatinine Clearance 88 ml/min; Glucose 115 mg/dl (70-99); Potassium 4.3 mmol/L (3.5-5.1); Sodium 139 mmol/L (135-145); Total Protein 7.0 g/dl (6.3-8.2); eGFR > 60.00
[2025-01-01] MEDS: TYLENOL 1000 MG PO (05:05)
[2025-01-01] MEDS: ROCEPHIN 1000 MG IV (05:05)
[2025-01-01] MEDS: VIBRAMYCIN 100 MG PO (05:05)
--- NOTE | 2025-01-01 05:37 | HPS.HSE ---
Family Physician
-
Family Physician: NOT KNOW UNKNOWN - PT DOES
Chief Complaint
-
Cough, Fatigue
History of Present Illness
Patient is a 79y M with PMH significant for bipolar depression, ASCVD and hypertension who presents to ED complaining of cough and fatigue. History obtained from patient and his at the bedside. Patient started with hacking cough on Sunday
evening. His symptoms progressed over several days to include sore throat, purulent mucus production and malaise. He was seen at Urgent Care on Sunday and started on Augmentin for suspected bronchitis.
This evening, woke and went to check on the patient and found him struggling to get out of his chair, very SOB and unable to stand.
911 was called and he was brought to the ED for further evaluation.
Medical History
Past Medical History
Past Medical History: Reports Other
Additional Past Medical History:
Bipolar Depression
ASCVD / Prior CVA
Hypertension
Parkinsonism
Cognitive Impairment
SAPNA
History of DVT
Obesity
Past Surgical History: Reports Other
Additional Past Surgical History:
PTCA with Stent
Cholecystectomy
Spinal Fusion
Social History
Tobacco: Non-smoker
Alcohol: None
Drug: None
Living: With Family
Family History
Family History: Not pertinent
Allergies / Home Medications
Allergies reflects when Allergies were last updated in [facility].
Home Medications with original date entered in [facility]
Allergy/Medication List:
Allergies
Allergy/AdvReac Type Severity Reaction Status Date / Time
No Known Allergies Allergy Verified 12/07/24 12:18
Home Medications
lovastatin 40 mg tablet 40 mg PO HS High cholesterol 06/17/11
divalproex 500 mg tablet,extended release 24 hr (Depakote ER) 2,000 mg PO HS Mental Health/Anxiety 10/12/23
lamotrigine 25 mg tablet (Lamictal) 50 mg PO DAILY Mental Health/Anxiety 10/12/23
lamotrigine 25 mg tablet (Lamictal) 75 mg PO HS Mental Health/Anxiety 10/12/23
metoprolol succinate 50 mg tablet,extended release 24 hr (Toprol XL) 50 mg PO DAILY Blood Pressure 10/12/23
aspirin 325 mg tablet 325 mg PO HS Daily #0 tabs 10/17/23
furosemide 40 mg tablet (Lasix) 40 mg PO DAILY 10/16/24
Review of Systems
-
History Source: Patient and Family
A 12 point ROS was completed and negative except as noted: Yes
Constitutional: Reports Fatigue; Denies Fever or Chills
EENT: Reports Sore Throat and Runny Nose
Respiratory: Reports Cough and Trouble Breathing
Cardiac: Denies Chest Pain or Palpitations
Abdomen/GI: Denies Abdominal Pain, Nausea, Vomiting or Diarrhea
: Denies Dysuria, Frequency or Flank Pain
Musculoskeletal: Denies Joint Pain or Edema
Neurological: Denies Dizzy or Headache
Physical Exam
Vital Signs
Vital Signs
Temp Pulse Resp BP Pulse Ox
100.9 F H 93 26 144/51 94
01/01/25 04:56 01/01/25 04:00 01/01/25 04:00 01/01/25 04:00 01/01/25 04:48
Physical Exam
General: Other (79y M in no acute distress. Cough throughout exam productive of purulent sputum.)
HEENT: Moist mucous membranes, PERRLA and Other (Thick neck.)
Respiratory: Other (Coarse breath sounds throughout / coarse upper airway sounds. Incomplete clearance with cough.)
Cardiac: S1/S2 and Tachycardia; No Murmur
GI: Soft, Non Tender, Non Distended and Normal Bowel Sounds
Musculoskeletal: No Clubbing, No Cyanosis and No Edema
Neuro: Awake and Alert
Laboratory Results
-
01/01/25 03:57
01/01/25 03:57
Laboratory Results
Lactic Acid 1.1 mmol/L (0.7-2.0) 01/01/25 03:57
Total Bilirubin 0.5 mg/dl (0.2-1.3) 01/01/25 03:57
AST 23 U/L (17-59) 01/01/25 03:57
ALT 14 U/L (0-50) 01/01/25 03:57
Alkaline Phosphatase 95 U/L (38-126) 01/01/25 03:57
Impression/Plan
-
A/P: Patient is a 79y M with PMH significant for bipolar depression, Parkinsonism and ASCVD who presents to ED complaining of cough and fatigue.
Pneumonia
Acute Hypoxemic Respiratory Insufficiency
Sepsis secondary to the above
- Admit for further evaluation and treatment.
- Patient presents with fever, tachycardia and room air SpO2 of 89% with L base opacity on CXR.
- Continue abx with ceftriaxone and doxycycline.
- Supportive care with nebs, mucolytics, antipyretics, etc.
- Continue supplemental O2 for now.
- Follow-up culture data.
- Follow for clinical improvement.
Bipolar Depression
- Stable. Continue current mood regimen.
- Follow for any changes.
ASCVD
History of CVA
- Stable. Continue ASA at 81mg dose for now (see below).
- Continue statin.
- Monitor for any new / focal symptoms.
Benign Hypertension
- Stable. Continue metoprolol with holding parameters.
Parkinsonism
- Secondary to Bipolar medications.
- PT eval.
History of DVT
DVT Prophylaxis
- Lovenox during hospital stay.
- Resume ASA 325mg on discharge for history of CVA and DVT (taken off of Coumadin previously secondary to fall risks).
Code Status: Full
[2025-01-01 05:58] LABS: Troponin I 0.018 ng/ml
[2025-01-01] MEDS: LOW STRENGTH ASPIRIN PO ×2 (07:47→09:32)
[2025-01-01] MEDS: TOPROL XL PO ×2 (07:47→09:32)
[2025-01-01] MEDS: LAMICTAL PO ×3 (07:48→21:39)
[2025-01-01] MEDS: LASIX PO ×2 (07:49→09:32)
--- NOTE | 2025-01-01 08:00 | PTCARENOTE ---
Addendum entered by Kirsty Thomas 01/01/25 18:19:
unable to administer AM PO meds safely at this time due to patient's inability to clear secretions.
Original Note:
pt with increased work of breathing and SOB upon receiving pt at change of shift. pt not able to bring up secretions despite yankeur. pt afebrile at this time, HR 94, BP 135/58, RR 32, pt satting at 92% on 6L. resident and attending made aware. upon
resident and attending arriving to floor, new orders for pt to be placed on telemetry (sinus tach), EKG completed, stat ABGs obtained, and one dose of 80mg IV lasix administered. pt transferred to IMU bed [address] Hoffman, shortly after
providing report to Yoav.
--- NOTE | 2025-01-01 08:28 | CM ---
Patient seen at bedside with physicians on . Patient states that his is Mirna and patient on 6 liters of O2 and moving to IMU at this time. CM called to patient Mirna and she states that they live in a condo with no steps to enter
and an elevator in the building. Patient has a rollator and an electric wheelchair that they just purchased. Patient PCP is Dr. Chele Jules from [facility] and they use the [facility] in [place]. Patient has been in [facility] and has had
[facility] in the past. Patient states that patient walks a limited amount and has dementia that is progressing slowly per . Mirna states that they will be in but she has been up all night getting patient here to the ED. CM will continue to
follow for discharge planning needs.
Plan; SNF vs home with [facility] pending medical treatment plans
[2025-01-01] MEDS: LASIX 80 MG IV (08:30)
[2025-01-01 08:44] LABS: B.E. 0 mmol/L; HCO3 23.8 mmol/L (21-28); O2 Saturation % 97.5 % (94-98); PCO2 35 mmHg (35-48); PO2 73 mmHg (83-108)
--- NOTE | 2025-01-01 09:19 | CON.PUL ---
Consultation
Consultation Request
Date/Time Consultation Requested: 12/31/24
Date/Time Consultation Performed: 01/01/25
Performing Provider: Simon
Reason for Consultation: Hypoxemia, SOB
Medical History
-
History of Present Illness:
Patient is a 79-year-old male with previous history of bipolar disorder, hypertension, cognitive impairment, SAPNA, DVT presenting to ER with cough and fatigue. History is obtained by the record, patient is unable to provide. Was having
progressive cough, sore throat, productive mucus and malaise progressive over the past several days. He was started on Augmentin as an outpatient at an urgent care for suspected bronchitis. He was noted to be progressively worsening despite that.
He was brought to the ER and placed on oxygen, O2 robert reportedly 87. He is now on 6 L. Fever is also noted, chest x-ray demonstrating possible basilar opacity but overall no acute findings. He is admitted to IMU.
Past Medical History
Past Medical History: Other (see list below)
Social History
Tobacco: Non-smoker
Alcohol: None
Drug: None
Family History
Family History: Reviewed & Not Pertinent
Allergies / Home Medications
Allergies
Allergy/AdvReac Type Severity Reaction Status Date / Time
No Known Allergies Allergy Verified 12/07/24 12:18
Home Medications
�Medication �Instructions �Recorded �Confirmed �Last Taken �Type
lovastatin 40 mg tablet 40 mg PO HS High cholesterol 06/17/11 01/01/25 01/01/25 History
divalproex 500 mg tablet,extended 2,000 mg PO HS Mental 10/12/23 01/01/25 01/01/25 History
release 24 hr (Depakote ER) Health/Anxiety
lamotrigine 25 mg tablet (Lamictal) 50 mg PO DAILY Mental 10/12/23 01/01/25 10/15/24 History
Health/Anxiety
lamotrigine 25 mg tablet (Lamictal) 75 mg PO HS Mental Health/Anxiety 10/12/23 01/01/25 01/01/25 History
metoprolol succinate 50 mg 50 mg PO DAILY Blood Pressure 10/12/23 01/01/25 01/01/25 History
tablet,extended release 24 hr
(Toprol XL)
aspirin 325 mg tablet 325 mg PO HS Daily #0 tabs 10/17/23 01/01/25 01/01/25 Rx
furosemide 40 mg tablet (Lasix) 40 mg PO DAILY 10/16/24 01/01/25 01/01/25 History
Review of Systems
-
History Source: Patient, Family and Transfer Record
All other systems: Negative unless noted
Vitals / Labs / Diagnostic Testing
Vital Signs
Temp Pulse Resp BP Pulse Ox
98.9 F 97 16 165/71 97
01/01/25 07:24 01/01/25 08:45 01/01/25 08:45 01/01/25 08:30 01/01/25 08:45
Lab Data
01/01/25 03:57
01/01/25 03:57
Laboratory Results
01/01/25 01/01/25
08:15 08:35
pH Cancelled 7.44
pCO2 Cancelled 35
pO2 Cancelled 73 L
HCO3 Cancelled 23.8
O2 Delivery Level Cancelled Not Reportable
Microbiology
01/01/25 03:57 Nasal Swab Influenza Types A & B (RJ) - Final
Negative for Influenza A & B, NAAT
Negative results must be combined with clinical observations
and patient history.
Nucleic Acid Amplification test (NAAT)performed on the
[employer] platform.
Diagnostic Testing:
Physical Exam
-
HEENT: Normocephalic, Anicteric and Moist Mucous Membranes
Cardiovascular: S1/S2, Regular Rhythm and Peripheral Edema (chronic changes BL)
Respiratory: Clear and Non-Labored Respirations
GI: Soft, Non Distended and Non Tender
Neurology: Awake, Alert, No Motor Deficits and Other (, not answering appropriately but speech is clear)
Skin: Warm and Dry
General: Comfortable and Other (NAD)
Assessment
-
Patient is a 79-year-old male with previous history of bipolar disorder, hypertension, cognitive impairment, SAPNA, DVT presenting to ER with cough and fatigue. History is obtained by the record, patient is unable to provide. Was having
progressive cough, sore throat, productive mucus and malaise progressive over the past several days. He was started on Augmentin as an outpatient at an urgent care for suspected bronchitis. He was noted to be progressively worsening despite that.
He was brought to the ER and placed on oxygen, O2 robert reportedly 87. He is now on 6 L. Fever is also noted, chest x-ray demonstrating possible basilar opacity but overall no acute findings. We are consulted for evaluation 01/01/25.
Acute hypoxic respiratory failure
Shortness of breath
Possible basilar opacity on chest x-ray
Mild anemia
Conditions present prior to admission
CAD s/p Cardiac (Stent)
HTN
Hypercholesterolemia
Anxiety/bipolar
Parkinsonism
Sleep apnea/CPAP
Balance problems/ambulatory dysfunction
Cognitive impairment
Cholecystectomy
Back surgery/spinal fusion 2009
History of DVT
Obesity, BMI 33
Plan
Hypoxemia noted on arrival, O2 robert 87% placed on 6L
No history of O2 use at home
Home O2 evaluation eventually
Prior history of lung disease is noted including SAPNA on CPAP
No prior PFTs for review
CXR with possible basilar opacity, r/o PNA, check PCT
Suspect patient has PE, given history of DVT
Check CTA
No prior ECHO as well, new study pending
proBNP 421--this is less reliable in obese pts
LE swelling is noted
IV diuresis given with good response
SAPNA on CPAP history, can likely resume when MS improves
Hold for now
ABG obtained with adequate ventilation
Weight loss measures recommended--BMI >30
Obesity likely contributing to respiratory symptoms
Likely will need outpatient pulmonary evaluation in our office for PFTs and 6MWT
We will follow
Diagnostic Data
Chest X-Ray: 01/01/25- There is airspace disease in the left lower lobe. This could be atelectasis versus pneumonia
11/29/23- Hypoaerated lungs without consolidation.
CT Scan:
US legs 12/07/24- No sonographic evidence for left lower extremity deep venous thrombosis.
Echo:
PFT's:
Reports and relevant images were personally reviewed.
Total time spent on this consultation __75__ minutes which includes review of history, physical exam, medications, laboratory data, personal review of imaging, extensive review of outpatient records, discussion with care team and respiratory therapy.
--- NOTE | 2025-01-01 09:33 | PTCARENOTE ---
Received patient by bed from 4th floor. Patient on 6L NC, sats 94%, visibly SOB. Patient AAOx2, confused, distracted. Bed alarm placed for safety. NST, T 101.5 and sweaty, will alert MD. Oriented patient to room. CC#25 placed. Will closely monitor.
[2025-01-01] MEDS: TYLENOL/FEVERALL 325 MG RECTAL (10:36)
--- NOTE | 2025-01-01 11:50 | W.PN.HOSP.TC ---
Addendum entered and electronically signed by Brynn Hoffman MD 01/01/25 16:29:
I saw and evaluated the patient independently. I reviewed the resident�s note and agree with findings and plan as documented by Dr. Huynh.
GENERAL: well developed, well nourished, obese male in no apparent distress--confused --? baseline
HEENT: NC/AT--6L O2 NC (wears none at home)
HEART: regular rate and rhythm, +S1, +S2--tachy
LUNGS : gurgling rhoncherous
ABDOM: soft, nontender, nondistended, + bowel sounds
EXT: no cyanosis, clubbing, or edema
NEUROLOGIC: grossly intact--limited exam
Acute Hypoxemic Respiratory Failure --likely due to sepsis from pulm infection (PNA, bronchitis)--cough, fever--moved to IMU--ABG/EKG appeared WNL--apprec pulm--did try 1 dose of IV lasix 80 mg but pro BNP not elevated--nevertheless, will check
ECHO, given hx of DVT, will check chest CT PE study--follow cultures--cont rocephin/doxy--speech consult
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
Essential Hypertension- Continue home Metoprolol Succinate as able
Bipolar Depression/Parkinsonism- Continue home Lamictal/depakote-PT/OT
History of DVT-- Lovenox proph--asa
DVT proph--Lovenox
Code Status-- Full
Total Critical Care Time 30 minutes. I was immediately available to the patient and staff. I personally examined, reviewed labs, diagnostic images/reports, interpretations, treatment plans, discussed patient care with other providers and family
or caregivers (if patient is unable to make decisions), entered orders as appropriate and documented the medical record.
Original Note:
Today's Communication/Plan
-
Transferred to IMU
F/u: echo, CTPE
CTW O2 as tolerated, currently on 6L NC
Strict NPO until SP eval given c/f aspiration
s/p IV Lasix 80mg, hold home Lasix 40mg
Assessment / Plan
Assessment / Plan
Frankie Abad is a 79yo male with bipolar depression, Parkinsoniasm, ASCVD/Prior CVA, hypertension, SAPNA, Obesity BMI 33.8, and history of DVT who presented to the ED via ambulance for worsening cough since 12/28, purulent mucus, malaise, and SOB
requiring 6LNC (no BL O2 at home). He reported being on Augmentin for PNA (diagnosed in urgent care 12/31). In the ED, he was started on IV Cftx and PO Doxy, and admitted to tele for further workup, however on the morning of 01/01, there was increased
concern by nursing for aspiration risk and rising O2 needs. He was also noted to have fever and CXR ON demonstrated possible basilar opacity/pneumonia. Clinically, Mr. Abad endorsed feeling 'fine' and was AxO3. CTPE, echo, IV lasix 80mg once, ABG,
and NPO orders were placed, was updates, and he was transferred to IMU for management.
#Acute Hypoxemic Respiratory Failure
#Sepsis 2/2 unknown etiology, likely pulmonary infection
#Worsening Cough
ABG wnl. Given the acuity of his symptoms, new O2 requirement of 6L NC, and history of DVT, PE cannot be ruled out without further workup. Otherwise, infectious etiology is very likely given fever, cough, purulent mucus, and findings on CXR. proBNP
and trops wnl, EKG showing low voltage, no echo on file; important to rule of cardiac causes.
- Consult Pulmonology, appreciate recs
- s/p IV Lasix 80mg 01/01: Home Lasix held
- F/u echo
- F/u CTPE
- F/u resp cltx; Continue IV Ceftriaxone & oral Doxycycline in the meantime
- Continue supportive care with Duonebs, O2, Mucinex, suction prn
- Strict NPO (no med/liquids) given c/f aspiration; SP eval appreciated
#ASCVD/Prior CVA
- Continue home Lovastatin 40mg po hs
- Lipitor 10 mg qhs
- Aspirin 81 mg daily
#Benign Hypertension
- Continue home Metoprolol Succinate 50mg po daily
#Bipolar Depression
#Parkinsonism
- Continue home Lamictal 50mg daily and 75mg qhs
- Depakote 2000mg qhs
- PT/OT Consulted
#History of DVT
- Lovenox ppx
- CTPE as above
- Resume home ASA 325mg on dc
DVT ppx: Lovenox
Code Status: Full
Anticipated Discharge: 24 - 48 hours (Pending clinical workup, symptom resolution, O2 weaning)
Subjective/Interval History
-
Date of Service: January 01, 2025
- Admitted to telemetry overnight, with continuing increased need for oxygen.
- This morning, he continued to have hacking cough with copious purulent sputum requiring suctioning and 6L NC. He could not be laid flat and nursing was concerned for risk of aspiration with p.o. meds. Clinically, he did not endorse chest pain,
shortness of breath, and stated that he felt 'fine.' However, given his increasing oxygen needs and concern for risk of aspiration, the decision was made to transfer him to the IMU.
- IV Lasix 81 time was ordered along with an ABG, proBNP, and he was made n.p.o. with speech consult in place. His , Mirna, was notified via phone call of the update and plan.
Objective Data
-
Labs:
Laboratory Results
01/01/25 01/01/25 01/01/25
03:57 08:15 08:35
WBC 7.2
Hgb 12.4 L
Hct 36.4 L
Plt Count 191
HCO3 Cancelled 23.8
Sodium 139
Potassium 4.3
Chloride 105
Carbon Dioxide 25
BUN 22 H
Creatinine 0.9
Glucose 115 H
Calcium 9.0
Total Bilirubin 0.5
AST 23
ALT 14
Alkaline Phosphatase 95
Vital Signs:
Vital Signs
Temp Pulse Resp BP Pulse Ox
101.4 F H 97 31 127/52 96
01/01/25 11:09 01/01/25 10:15 01/01/25 10:15 01/01/25 10:00 01/01/25 10:15
Review of Systems
-
History Source: Patient
All other systems: Reviewed and negative
Constitutional: Reports Weight Gain and Fatigue
Respiratory: Reports Cough, Trouble Breathing and Wheezing
Physical Exam
-
General: Respiratory Distress, Appears in Distress, Obese and Other (Sitting up in bed with 6L NC, answering questions appropriately, alert and oriented, however auditory gurgling heard and he continues to suction his mouth for yellow/green
secretions while talking)
HEENT: Normocephalic, Atraumatic and Moist Mucous Membranes
Respiratory: Rales, Rhonchi, Crackles and Decreased Breath Sounds
Cardiac: Regular Rhythm and S1/S2
GI: Soft, Nontender and Nondistended
Skin: Warm and Dry
Neuro: AO x 3
Psych: Intact Judgement/Insight
--- NOTE | 2025-01-01 13:50 | CARDSERVLU ---
Echocardiogram with [facility] completed after protocol screening completed. Allergies verified.
Patent IV site: __L Wrist___
IV site flushed with 0.9% NaCl pre and post administration.
Diluted bolus method utilized to enhance visualization of ventricular ching.
Total volume given: __2.5__ mL
Patient tolerated all procedures well without complications.
[2025-01-01] MEDS: LOVENOX 40 MG SC (18:31)
[2025-01-01] MEDS: VIBRAMYCIN PO (20:08)
--- NOTE | 2025-01-01 21:02 | W.PN.UPDATE ---
Update Note
Progress Note Update
IV Depakote
[2025-01-01] MEDS: DEPACON 70 MG IV (21:39)
[2025-01-01] MEDS: LIPITOR PO (21:39)
[2025-01-02] VITALS (16 sets, daily range): BP systolic 120–159; BP diastolic 34–69; PULSE 90–101; O2SAT 91–93; BMI 33.0
[2025-01-02 05:15] LABS: Blood Urea Nitrogen 24 mg/dl (9-20); Calcium 8.7 mg/dl (8.4-10.2); Carbon Dioxide 29 mmol/L (22-30); Chloride 104 mmol/L (98-107); Estimated Creatinine Clearance 87 ml/min; Glucose 90 mg/dl (70-99); Potassium 4.3 mmol/L (3.5-5.1); Sodium 140 mmol/L (135-145); eGFR > 60.00
[2025-01-02] MEDS: ROCEPHIN 1000 MG IV (05:20)
[2025-01-02] MEDS: STERILE WATER FOR INJECTION 10 ML IV (05:20)
--- NOTE | 2025-01-02 05:52 | PTCARENOTE ---
Received pt at change of shift. AAOx2; not oriented to time. Pt pleasantly confused. Afebrile throughout shift. Productive cough, thick sputum; suction within reach of pt. lungs are coarse throughout. Pt unable to take evening PO medications;
coughing with water intake; kept NPO. Notified [employer]. Call connors within reach.
[2025-01-02 06:41] LABS: Hematocrit 38.7 % (39.0-52.0); Hemoglobin 13.1 g/dL (13.0-18.0); Mean Corp Hgb Conc. 33.9 g/dL (33.0-37.0); Mean Corpuscular Volume 92.1 fL (80.0-94.0); Platelet Count 203 10^3/uL (130-400); Red Cell Dist. Width 13.3 % (11.5-14.5)
--- NOTE | 2025-01-02 09:22 | W.PN.PUL3 ---
Today's Communication / Plan
-
CTA negative, ECHO normal--likely due to bibasilar atelectasis/PNA (r/o aspiration), with low volumes/obesity/deconditioning
Weaned down to 1L, likely can wean to off with rehab
Check PCT, if elevated can complete PO course
Agree with speech, PT/OT evals, OOB encouraged
Can likely transfer out of IMU, discharge planning per team
No further recs from our standpoint, we will sign off at this time, pls call with questions
Assessment
-
Patient is a 79-year-old male with previous history of bipolar disorder, hypertension, cognitive impairment, SAPNA, DVT presenting to ER with cough and fatigue. History is obtained by the record, patient is unable to provide. Was having
progressive cough, sore throat, productive mucus and malaise progressive over the past several days. He was started on Augmentin as an outpatient at an urgent care for suspected bronchitis. He was noted to be progressively worsening despite that.
He was brought to the ER and placed on oxygen, O2 robert reportedly 87. He is now on 6 L. Fever is also noted, chest x-ray demonstrating possible basilar opacity but overall no acute findings. We are consulted for evaluation 01/01/25.
Acute hypoxic respiratory failure
Shortness of breath
Possible basilar opacity on chest x-ray, r/o PNA
Mild anemia
Conditions present prior to admission
CAD s/p Cardiac (Stent)
HTN
Hypercholesterolemia
Anxiety/bipolar
Parkinsonism
Sleep apnea/CPAP
Balance problems/ambulatory dysfunction
Cognitive impairment
Cholecystectomy
Back surgery/spinal fusion 2009
History of DVT
Obesity, BMI 33
Plan
Hypoxemia noted on arrival, O2 robert 87% placed on 6L--this has been weaned down to 1L
No history of O2 use at home
Home O2 evaluation eventually
Prior history of lung disease is noted including SAPNA on CPAP
No prior PFTs for review
CXR with possible basilar opacity, r/o PNA, check PCT
Suspect patient has PE, given history of DVT-- CTA negative
No prior ECHO as well, new study reviewed-normal
proBNP 421--this is less reliable in obese pts
LE swelling is noted
IV diuresis given with good response
SAPNA on CPAP history, can likely resume when MS improves
ABG obtained with adequate ventilation
Weight loss measures recommended--BMI >30
Obesity likely contributing to respiratory symptoms
Agree with PT/OT, speech eval to r/o aspiration
Reviewed plan of care with at bedside
Discharge planning
Diagnostic Data
Chest X-Ray: 01/01/25- There is airspace disease in the left lower lobe. This could be atelectasis versus pneumonia
11/29/23- Hypoaerated lungs without consolidation.
CT Scan:
US legs 12/07/24- No sonographic evidence for left lower extremity deep venous thrombosis.
Echo: 01/01/25-1. Ejection fraction is 65-70% by visual assesment.
2. No regional wall motion abnormalities.
3. Right ventricular size and systolic function are within normal limits.
4. No significant valvular heart disease.
5. There are no prior studies available for comparison.
PFT's:
Reports and relevant images were personally reviewed.
Total time spent on this consultation __50__ minutes which includes review of history, physical exam, medications, laboratory data, personal review of imaging, extensive review of outpatient records, discussion with care team and respiratory therapy.
Subjective Data
-
Date of Service:
Date of Service: January 02, 2025
Chief Complaint: Pulmonary Follow Up
Subjective:
No acute events ON, O2 weaned down to 1L NC
No new complaints, feeling better
Objective Data
Data Reviewed
Vital Signs / I&O / Oxygen:
Vital Signs
Temp Pulse Resp BP Pulse Ox
97.7 F 60 23 139/52 93
01/02/25 07:22 01/02/25 04:00 01/02/25 04:00 01/02/25 04:00 01/02/25 09:19
Intake and Output
01/01/25 01/02/25 01/03/25
06:59 06:59 06:59
Output Total 1200 / 1200
Balance -1200 / -1200
SaO2 93
Nasal Cannula flow liters per 2
minute
Physical Exam
General: Comfortable and Other (NAD)
HEENT: Normocephalic, Anicteric and Moist Mucous Membranes
Cardiovascular: S1-S2 and Regular Rhythm
Respiratory: Crackles (bibasilar, minimal) and Non-Labored Respirations
GI: Soft, Non Distended and Non Tender
Neurology: Awake, Alert, Oriented and No Motor Deficits
Skin: Warm, Dry and Good Color
Labs/Micro/Reports
Lab Data
01/02/25 04:32
01/02/25 04:32
Microbiology
01/01/25 05:33 Blood/Venous Blood Culture - Preliminary
No Growth in 24 hours- Final report to follow
01/01/25 05:02 Blood/Venous Blood Culture - Preliminary
No Growth in 24 hours- Final report to follow
01/01/25 04:00 Sputum Gram Stain - Preliminary
01/01/25 03:57 Nasal Swab Influenza Types A & B (RJ) - Final
Negative for Influenza A & B, NAAT
Negative results must be combined with clinical observations
and patient history.
Nucleic Acid Amplification test (NAAT)performed on the
[employer] platform.
[2025-01-02] MEDS: VIBRAMYCIN 100 MG PO ×2 (09:27→20:51)
[2025-01-02] MEDS: TOPROL XL PO (09:28)
[2025-01-02] MEDS: LOW STRENGTH ASPIRIN 81 MG PO (09:29)
[2025-01-02] MEDS: LAMICTAL 50 MG PO (09:29)
[2025-01-02 10:07] LABS: COVID-19 Antigen Negative (Negative)
--- NOTE | 2025-01-02 10:14 | CM ---
Addendum entered by Nataliya Choe 01/02/25 16:19:
CM called to patient would like referral only to [facility], CM will send referral via all script.
Original Note:
Patient now in IMU, patient for diet to advance per physician. CM awaiting PT/OT assessment to clarify level of care needs. Patient may benefit from SNF, CM will talk to patient about options for SNF. CM will continue to follow for discharge
planning needs.
Plan; SNF vs home with VN; watch for therapy recommendations.
--- NOTE | 2025-01-02 11:20 | W.PN.HOSP.TC ---
Addendum entered and electronically signed by Brnyn Hoffman MD 01/02/25 16:46:
I saw and evaluated the patient independently. I reviewed the resident�s note and agree with findings and plan as documented by Dr. Huynh.
GENERAL: well developed, well nourished, obese male in no apparent distress--much improved mentally
HEENT: NC/AT--1L O2 NC (wears none at home)
HEART: regular rate and rhythm, +S1, +S2--tachy
LUNGS : rhonchi bilaterally--no longer gurgling
ABDOM: soft, nontender, nondistended, + bowel sounds
EXT: no cyanosis, clubbing, or edema
NEUROLOGIC: grossly intact--limited exam
Acute Hypoxemic Respiratory Failure --likely due to sepsis from pulm infection (PNA, bronchitis)--cough, fever---ABG/EKG appeared WNL--apprec pulm--did try 1 dose of IV lasix 80 mg but pro BNP not elevated--ECHO WNL, chest CT neg for PE but L>R
lower lobe opacities, procalcitonin positive--wean O2 to off--follow cultures--cont rocephin/doxy--apprec speech
ASCVD/Prior CVA--Continue home Lovastatin/asa
Essential Hypertension- Continue home Metoprolol Succinate as able
Bipolar Depression/Parkinsonism--Continue home Lamictal/Depakote--PT/OT rec SNF
History of DVT-- Lovenox proph--asa
DVT proph--Lovenox
Code Status-- Full
restart meds as able
Original Note:
Today's Communication/Plan
-
SP recs:
--IDDSI 5 - Minced & Moist Diet with Thin Liquids; Meds crushed in applesauce
--If ongoing c/f aspiration, VSE recommended
--CTM
Restart home Lasix
Continue Abx
Continue to wean O2
Assessment / Plan
Assessment / Plan
Frankie Abad is a 79yo male with bipolar depression, Parkinsoniasm, ASCVD/Prior CVA, hypertension, SAPNA, Obesity BMI 33.8, and history of DVT who presented to the ED via ambulance for worsening cough since 12/28, purulent mucus, malaise, and SOB
requiring 6LNC (no BL O2 at home). He reported being on Augmentin for PNA (diagnosed in urgent care 12/31). In the ED, he was started on IV Cftx and PO Doxy, and admitted to tele for further workup, however on the morning of 01/01, there was increased
concern by nursing for aspiration risk and rising O2 needs. He was also noted to have fever and CXR ON demonstrated possible basilar opacity/pneumonia. Clinically, Mr. Abad endorsed feeling 'fine' and was AxO3. CTPE, echo, IV lasix 80mg once, ABG,
and NPO orders were placed, was updates, and he was transferred to IMU for management.
#Acute Hypoxemic Respiratory Failure
#Sepsis 2/2 unknown etiology, likely pulmonary infection
#Worsening Cough
ABG wnl. Given the acuity of his symptoms, initial O2 requirement of 6L NC, and history of DVT, PE was considered, but ruled out based on negative CTPE 01/01. proBNP and trops wnl, EKG showing low voltage, no echo on file previously, echo 01/01 wnl.
As such, cardiac causes for his hypoxemia are less likely. The most likely etiology is infectious given fever, cough, purulent mucus, and findings on CXR, CTPE, suggesting pneumonia.
- Consult Pulmonology, appreciate recs
- s/p IV Lasix 80mg 01/01: RESTART Home Lasix 40mg daily
- Echo & CTPE 01/01 unremarkable for PE or HF/abnx, instead endorse left greater than right lower lobe opacities, probably a combination of atelectasis and pneumonia.
- F/u resp cltx; Continue IV Ceftriaxone & oral Doxycycline in the meantime
- Continue supportive care with Duonebs, O2 (ELIAS; 3L NC 01/02), Mucinex, suction prn
- Strict NPO (no med/liquids) given c/f aspiration; DANYA toney 01/02 recs:
--IDDSI 5 - Minced & Moist Diet with Thin Liquids; Meds crushed in applesauce
--If ongoing c/f aspiration, VSE recommended
--CTM
#ASCVD/Prior CVA
- Continue home Lovastatin 40mg po hs
- Aspirin 81 mg daily
#Benign Hypertension
- Continue home Metoprolol Succinate 50mg po daily
#Bipolar Depression
#Parkinsonism
- Continue home Lamictal 50mg daily and 75mg qhs
- Depakote 2000mg qhs
- PT/OT Consulted
#History of DVT
- Lovenox ppx
- CTPE as above
- Resume home ASA 325mg on dc
DVT ppx: Lovenox
Code Status: Full
Anticipated Discharge: 24 - 48 hours (Pending clinical improvement )
Subjective/Interval History
-
Date of Service: January 02, 2025
- ON, able to wean from 6L NC to 3L NC. ED, was NPO, afebrile, HDS.
- This morning, he reports getting the best sleep he has in days. His cough is also less frequent. DANYA toney completed and they OK'd him for IDDS5 (moist & minced) diet with thin liquids, meds crushed in applesauce. Rec CTM and if persisting c/f
aspiration, rec VSE.
Objective Data
-
Labs:
Laboratory Results
01/02/25
04:32
WBC 9.8
Hgb 13.1
Hct 38.7 L
Plt Count 203
Sodium 140
Potassium 4.3
Chloride 104
Carbon Dioxide 29
BUN 24 H
Creatinine 0.9
Glucose 90
Calcium 8.7
Vital Signs:
Vital Signs
Temp Pulse Resp BP Pulse Ox
97.7 F 65 26 131/49 91
01/02/25 07:22 01/02/25 10:00 01/02/25 10:00 01/02/25 10:00 01/02/25 10:00
I&O
01/01/25 01/02/25 01/03/25
06:59 06:59 06:59
Output Total 1200 / 1200
Balance -1200 / -1200
Review of Systems
-
History Source: Patient
All other systems: Reviewed and negative
Constitutional: Reports Fatigue
EENT: Reports Sore Throat
Respiratory: Reports Cough and Other (3L NC, new O2 requirement)
Physical Exam
-
General: Well Developed, Well Nourished, No Apparent Distress, Comfortable, Conversant and Other (Laying in bed, in and out of sleep, answering appropriately, on 3L NC)
HEENT: Normocephalic, Atraumatic and Moist Mucous Membranes
Respiratory: Wheezes, Rales and Non Labored Respirations
Cardiac: Regular Rhythm and S1/S2
GI: Soft, Nontender and Nondistended
Musculoskeletal: No Clubbing, No Cyanosis and No Edema
Skin: Warm and Dry
Neuro: AO x 3
Psych: Calm and Intact Judgement/Insight
--- NOTE | 2025-01-02 11:29 | PTCARENOTE ---
Patient AAOx2, more alert and talkative than yesterday. Patient still with productive cough, no other complaints. Weaned to 3L NC, sats 93%. VSS. Will closely monitor.
--- NOTE | 2025-01-02 13:04 | PTOTSP ---
Speech Therapy Evaluation:
Pt presents with mild oral impairments. No overt s/sx of aspiration at bedside, however cannot r/o pharyngeal component given acute on chronic risk factors for dysphagia including Parkinson's, Dementia (per report), and current pneumonia. Risk
of aspiration increased given impaired respiratory status and limited ambulation. CXR with L > R lower lobe opacities, likely a combination of atelectasis and pneumonia, WBC WNL, and pt afebrile.
Of note, VSE completed 09/2023 with functional swallow, however cannot r/o worsening in function given progressive nature of Parkinson's. FIELD RETURN REPAIRER to follow and monitor to determine if pt would benefit from repeat VSE.
Recommend:
1. IDDSI Level 5 (minced and moist) and thin liquids
2. Medications crushed in puree
3. Strict aspiration precautions
4. Close supervision s/p diet initiation
5. FIELD RETURN REPAIRER to follow to monitor tolerance of diet and determine if pt would benefit from instrumental assessment
[2025-01-02 15:23] LABS: Procalcitonin 0.72 ng/ml (0.0-0.25)
[2025-01-02] MEDS: LOVENOX 40 MG SC (18:42)
[2025-01-02] MEDS: LAMICTAL 75 MG PO (20:51)
[2025-01-02] MEDS: LIPITOR 10 MG PO (20:52)
[2025-01-03] VITALS (8 sets, daily range): BP systolic 124–160; BP diastolic 54–73; BMI 33.1
[2025-01-03] MEDS: DEPAKENE 250 MG PO ×4 (00:32→17:07)
[2025-01-03] MEDS: ROBITUSSIN 400 MG PO ×5 (00:32→21:14)
[2025-01-03] MEDS: ROBITUSSIN PO (04:53)
[2025-01-03] MEDS: STERILE WATER FOR INJECTION 10 ML IV (05:18)
[2025-01-03] MEDS: ROCEPHIN 1000 MG IV (05:18)
--- NOTE | 2025-01-03 05:42 | SUR.OPER ---
Pt OOB to chair at change of shift. Assist x2 back to bed. Pt BEARD. Remains on 4 L NC with pulse ox 92%. No events noted overnight.
[2025-01-03 05:49] LABS: Hematocrit 35.2 % (39.0-52.0); Hemoglobin 11.8 g/dL (13.0-18.0); Mean Corp Hgb Conc. 33.5 g/dL (33.0-37.0); Mean Corpuscular Volume 91.2 fL (80.0-94.0); Nucleated Red Blood Cells % 0 % (-); Platelet Count 183 10^3/uL (130-400); Red Cell Dist. Width 13.0 % (11.5-14.5)
[2025-01-03 06:03] LABS: ALT (SGPT) 15 U/L (0-50); AST (SGOT) 23 U/L (17-59); Albumin 3.3 g/dl (3.5-5.0); Alkaline Phosphatase 68 U/L (38-126); Blood Urea Nitrogen 31 mg/dl (9-20); Calcium 9.1 mg/dl (8.4-10.2); Carbon Dioxide 28 mmol/L (22-30); Chloride 105 mmol/L (98-107); Estimated Creatinine Clearance 98 ml/min; Glucose 94 mg/dl (70-99); Potassium 4.0 mmol/L (3.5-5.1); Sodium 139 mmol/L (135-145); Total Protein 6.2 g/dl (6.3-8.2); eGFR > 60.00
--- NOTE | 2025-01-03 07:00 | PTCARENOTE ---
Cannot verify VS from prior shift.
--- NOTE | 2025-01-03 07:51 | W.PN.HOSP.TC ---
Today's Communication/Plan
-
add incentive spirometer
transfer to tele
encourage OOB
d/c planning to [facility]--anticipate Sunday if remains stable
Assessment / Plan
Assessment / Plan
Pt is a 79 year old male
Acute Hypoxemic Respiratory Failure --likely due to sepsis from PNA--cough, fever---ABG/EKG appeared WNL--apprec pulm--did try 1 dose of IV lasix 80 mg but pro BNP not elevated--ECHO WNL, chest CT neg for PE but L>R lower lobe opacities,
procalcitonin positive--wean O2 to off--follow cultures--cont rocephin/doxy--apprec speech --can downgrade to tele--add IS
ASCVD/Prior CVA--Continue home Lovastatin/asa
Essential Hypertension- Continue home Metoprolol Succinate as able
Bipolar Depression/Parkinsonism--Continue home Lamictal/Depakote--PT/OT rec SNF
History of DVT-- Lovenox proph--asa
DVT proph--Lovenox
Code Status-- Full
Anticipated Discharge: 24 - 48 hours
Subjective/Interval History
-
Date of Service: January 03, 2025
pt doing well
Objective Data
-
Labs:
Laboratory Results
01/03/25
05:16
WBC 5.4
Hgb 11.8 L
Hct 35.2 L
Plt Count 183
Sodium 139
Potassium 4.0
Chloride 105
Carbon Dioxide 28
BUN 31 H
Creatinine 0.8
Glucose 94
Calcium 9.1
Total Bilirubin 0.6
AST 23
ALT 15
Alkaline Phosphatase 68
Vital Signs:
max temp for 24 hours
01/02/25
15:03
Temp 99.3 F
Vital Signs
Temp Pulse Resp BP Pulse Ox
98.5 F 59 19 138/69 91
01/03/25 06:42 01/03/25 06:00 01/03/25 06:00 01/03/25 06:00 01/03/25 06:00
I&O
01/02/25 01/03/25 01/04/25
06:59 06:59 06:59
Output Total 1200 / 1200 400 / 400
Balance -1200 / -1200 -400 / -400
Review of Systems
-
All other systems: Reviewed and negative
Physical Exam
-
General: Well Developed, Well Nourished and No Apparent Distress
HEENT: Normocephalic, Atraumatic and Oxygen
Respiratory: Rhonchi (improving)
Cardiac: Regular Rhythm and S1/S2; Negative Murmur
GI: Soft, Nontender, Nondistended and Normal Bowel Sounds
Musculoskeletal: No Clubbing, No Cyanosis and No Edema
Skin: Warm
Neuro: Awake and Alert
Psych: Calm
[2025-01-03] MEDS: LAMICTAL 50 MG PO (08:12)
[2025-01-03] MEDS: VIBRAMYCIN 100 MG PO ×2 (08:12→21:16)
[2025-01-03] MEDS: TOPROL XL 50 MG PO (08:12)
[2025-01-03] MEDS: LOW STRENGTH ASPIRIN 81 MG PO (08:12)
[2025-01-03] MEDS: LASIX 40 MG PO (08:12)
--- NOTE | 2025-01-03 13:00 | PTCARENOTE ---
Pt's assessment as documented. Aox2, forgetful. NSR on tele monitor. Sating mid 90's on 4L NC. OOB to chair. Medications administered as ordered, see MAR. Ringing appropriately, call connors within reach. Bed and chair alarm in place for safety.
--- NOTE | 2025-01-03 15:22 | PTCARENOTE ---
Pt downgraded to tele. Report called to receiving RN. Belongings collected from room. Transferred to [facility]2 via stretcher.
[2025-01-03] MEDS: LOVENOX 40 MG SC (17:03)
[2025-01-03] MEDS: TYLENOL 650 MG PO (18:11)
[2025-01-03] MEDS: LIPITOR 10 MG PO (21:21)
[2025-01-03] MEDS: LAMICTAL 75 MG PO (21:22)
[2025-01-04] MEDS: DEPAKENE 250 MG PO ×3 (00:08→11:56)
[2025-01-04] MEDS: ROBITUSSIN 400 MG PO ×3 (00:08→11:56)
[2025-01-04 03:00] VITALS: BP 134/58
[2025-01-04] MEDS: ROBITUSSIN PO (05:03)
[2025-01-04] MEDS: ROCEPHIN 1000 MG IV (05:44)
[2025-01-04] MEDS: STERILE WATER FOR INJECTION 10 ML IV (05:45)
[2025-01-04 06:00] VITALS: BMI 33.0
[2025-01-04 08:23] VITALS: BP 135/62
[2025-01-04] MEDS: LAMICTAL 50 MG PO (08:48)
[2025-01-04] MEDS: LOW STRENGTH ASPIRIN 81 MG PO (08:48)
[2025-01-04] MEDS: VIBRAMYCIN 100 MG PO (08:48)
[2025-01-04] MEDS: LASIX 40 MG PO (08:48)
[2025-01-04] MEDS: TOPROL XL 50 MG PO (08:49)
--- NOTE | 2025-01-04 09:22 | W.PN.HOSP.TC ---
Today's Communication/Plan
-
change IV abx to oral Augmentin
wean O2
hopeful d/c to [facility] today
Assessment / Plan
Assessment / Plan
Pt is a 79 year old male
Acute Hypoxemic Respiratory Failure --likely due to sepsis from PNA--cough, fever---ABG/EKG appeared WNL--apprec pulm--did try 1 dose of IV lasix 80 mg but pro BNP not elevated--ECHO WNL, chest CT neg for PE but L>R lower lobe opacities,
procalcitonin positive--wean O2 to off--follow cultures-- rocephin/doxy to augmentin to complete course--apprec speech --cont IS--wean O2 to off
ASCVD/Prior CVA--Continue home Lovastatin/asa
Essential Hypertension- Continue home Metoprolol Succinate as able
Bipolar Depression/Parkinsonism--Continue home Lamictal/Depakote--PT/OT rec SNF
History of DVT-- Lovenox proph--asa
DVT proph--Lovenox
Code Status-- Full
Anticipated Discharge: Today
Subjective/Interval History
-
Date of Service: January 04, 2025
pt feeling claustrophobic
Objective Data
-
Labs:
Laboratory Results
01/04/25
06:00
WBC Pending
Hgb Pending
Hct Pending
Plt Count Pending
Sodium Pending
Potassium Pending
Chloride Pending
Carbon Dioxide Pending
BUN Pending
Creatinine Pending
Glucose Pending
Calcium Pending
Total Bilirubin Pending
AST Pending
ALT Pending
Alkaline Phosphatase Pending
Vital Signs:
max temp for 24 hours
01/04/25
03:00
Temp 98.1 F
Vital Signs
Temp Pulse Resp BP Pulse Ox
97.8 F 60 20 135/62 96
01/04/25 08:23 01/04/25 08:49 01/04/25 08:23 01/04/25 08:49 01/04/25 08:23
I&O
01/03/25 01/04/25 01/05/25
06:59 06:59 06:59
Intake Total 780 / 780
Output Total 400 / 400 825 / 825
Balance -400 / -400 -45 / -45
Review of Systems
-
All other systems: Reviewed and negative
Physical Exam
-
General: Well Developed, Well Nourished and No Apparent Distress
HEENT: Normocephalic, Atraumatic and Other
Respiratory: Rhonchi
Cardiac: Regular Rhythm and S1/S2; Negative Murmur
GI: Soft, Nontender, Nondistended and Normal Bowel Sounds
Musculoskeletal: No Clubbing, No Cyanosis and No Edema
Neuro: Awake and Alert
Psych: Calm
--- NOTE | 2025-01-04 10:21 | CM ---
CM following for transfer to the [facility]. I spoke with the packing and final assembly supervisor who is going to contact the clinical administrator for approval of admission.
Plan: Await update from [facility] regarding willingness to accept for admission.
[2025-01-04] MEDS: AUGMENTIN 875 MG/125 MG 1 TABLET PO (10:37)
--- NOTE | 2025-01-04 10:53 | CM ---
CM spoke with Debra at [facility] who is accepting Frankie for admission. Faxed [facility] referral information due to Debra not being able to access [facility].
Pt has traditional Medicare coverage; no authorization required for SNF.
Pt and notified of plan for transfer to [facility] today. Ambulance transport scheduled for 1PM.
Report: [phone]
[2025-01-04 12:08] VITALS: BP 121/52
--- NOTE | 2025-01-04 14:41 | W.DCSUMMARY ---
Discharge Summary
Discharge Data
Date of Admission: 01/01/25
Date of Discharge: 01/04/25
-
Pending Results: No
Hospital Course
Primary care physician : Chele Jules
Principal Discharge diagnosis : Acute hypoxemic respiratory failure due to sepsis from pneumonia
Chronic Discharge diagnosis : Atherosclerotic cardiovascular disease with prior stroke, essential hypertension, bipolar depression/parkinsonism, history of deep venous thrombosis
Hospital Course : Patient is a 79-year-old male with a history of bipolar depression and the above medical issues who came in complaining of cough and fatigue. He started with a hacking cough on the Sunday evening prior to admission. His symptoms
progressed over several days to include sore throat, mucus production and malaise. He was seen at an urgent care on the Sunday prior to admission and started on Augmentin for suspected bronchitis. Patient's went to check on him and found
him struggling to get out of his chair, short of breath, and unable to stand. Patient was admitted.
Problem #1: Acute hypoxemic respiratory failure due to sepsis from pneumonia. Patient was on 6 L of oxygen and an ABG and EKG were checked which were normal. Pulmonary did consult and patient was moved to the intermediate care unit. Patient
received 1 dose of IV Lasix however, his proBNP was not elevated and echocardiogram was within normal limits. CAT scan of his chest was negative for pulmonary embolism but did show left greater than right lower lobe opacities. His procalcitonin
was positive. He was started on IV Rocephin and oral doxycycline and his oxygen was weaned to 2 L. Speech was consulted as there was some concern for aspiration. Patient was given an IDD 5 minced and moist diet with thin liquids. Patient
continued to improve. Oxygen was continued to be weaned. Patient has been accepted to longterm facility and is stable for discharge at this time.
Problem #2: All other medical issues. These include Atherosclerotic cardiovascular disease with prior stroke, essential hypertension, bipolar depression/parkinsonism, history of deep venous thrombosis. These medical issues were stable during his
hospitalization. Medications were continued as able.
Patient is stable for discharge to the longterm facility at this time. If there are any questions regarding this dictation or his hospital stay, please do not hesitate to call. Our office number is [phone].
Time for discharge 32 minutes.
Important imaging findings :
CT CHEST IMPRESSION:
No CTA evidence for an acute central pulmonary thromboembolism. Suboptimal evaluation of the bilateral segmental and subsegmental pulmonary arteries.
Left greater than right lower lobe opacities, probably a combination of atelectasis and pneumonia.
Discharge Plan
-
Patient Disposition: Group Home/SNF
Discharge Diagnosis/Procedures: Acute hypoxemic respiratory failure due to sepsis from pneumonia, prior stroke, essential hypertension, bipolar disorder with depression and parkinsonism, history of deep venous thrombosis
Condition: Good
Additional Diets: IDDSI 5�minced and moist with thin liquids
Activity: As tolerated
Driving Restrictions: As prior to admission
Bathing Restrictions: None
Referrals:
Chele Jules MD [Non-Admitting Privileges, [facility]] - in less than 1 week
Prescriptions:
New
amoxicillin-pot clavulanate 875-125 mg Tablet
1 tab PO Q12 10 Days Qty: 20 0RF
acetaminophen 325 mg Tablet
650 mg PO Q4HPRN PRN (Reason: Mild Pain / Temp > 101 F) Qty: 0 0RF
ipratropium-albuterol 0.5 mg-3 mg(2.5 mg base)/3 mL Solution For Nebulization
3 ml inhalation R Q4HPRN PRN (Reason: SOB) Qty: 0 0RF
Continued
lovastatin 40 MG tablet
40 mg PO HS
metoprolol succinate [Toprol XL] 50 mg Tablet Extended Release 24 Hr
50 mg PO DAILY
lamotrigine [Lamictal] 25 mg Tablet
50 mg PO DAILY
lamotrigine [Lamictal] 25 mg Tablet
75 mg PO HS
divalproex [Depakote ER] 500 mg Tablet Extended Release 24 Hr
2,000 mg PO HS
aspirin 325 mg Tablet
325 mg PO HS Qty: 0 0RF
furosemide [Lasix] 40 mg Tablet
40 mg PO DAILY
Discharge Orders:
Discharge Patient (As Directed); Ordered 01/04/25
Ordered By: Brynn Hoffman
Discharge Date and Time
Discharge Date/Time: 01/04/25 13:25
Print Language: TELUGU
== END 2025-01-04 13:25 | DRG 871 ==
LOC: 3 WEST ACU 06:28
PROVIDERS: ADMITTING PHYSICIAN Hospitalist; ATTENDING PHYSICIAN Internal Medicine; CONSULT PHYSICIAN Internal Medicine; EMERGENCY PHYSICIAN Emergency Medicine
DX: A41.9 Sepsis, unspecified organism (principal); J18.9 Pneumonia, unspecified organism; J96.01 Acute respiratory failure with hypoxia; F31.30 Bipolar disorder, current episode depressed, mild or moderate severity, unspecified; J98.11 Atelectasis; R65.20 Severe sepsis without septic shock; E66.9 Obesity, unspecified; G47.33 Obstructive sleep apnea (adult) (pediatric); I10 Essential (primary) hypertension; F41.9 Anxiety disorder, unspecified; G20.A1 Parkinson's disease without dyskinesia, without mention of fluctuations; I25.10 Atherosclerotic heart disease of native coronary artery without angina pectoris; D64.9 Anemia, unspecified; E78.00 Pure hypercholesterolemia, unspecified; Z11.52 Encounter for screening for COVID-19; Z68.33 Body mass index [BMI] 33.0-33.9, adult; Z79.899 Other long term (current) drug therapy; Z86.718 Personal history of other venous thrombosis and embolism; Z86.73 Personal history of transient ischemic attack (TIA), and cerebral infarction without residual deficits; Z95.5 Presence of coronary angioplasty implant and graft
CPT/HCPCS: 71046; 71275; 80048; 80053; 82805; 83605; 83880; 84145; 84484; 85025; 85027; 87040; 87070; 87205; 87502; 87811; 92610; 93005; 93306; 94640; 96374; 97163; 97167; 99285; Q9950; Q9967

== ENCOUNTER 2025-02-16 15:20 | Emergency (ER) | payer MEDICARE, OTHER, SELFPAY ==
[2025-02-16 15:22] VITALS: BP 151/53
[2025-02-16 16:06] LABS: Hematocrit 35.4 % (39.0-52.0); Hemoglobin 11.7 g/dL (13.0-18.0); Mean Corp Hgb Conc. 33.1 g/dL (33.0-37.0); Mean Corpuscular Volume 91.2 fL (80.0-94.0); Nucleated Red Blood Cells % 0 % (-); Platelet Count 265 10^3/uL (130-400); Red Cell Dist. Width 13.2 % (11.5-14.5)
[2025-02-16 16:15] LABS: ALT (SGPT) 13 U/L (0-50); AST (SGOT) 21 U/L (17-59); Albumin 4.1 g/dl (3.5-5.0); Alkaline Phosphatase 66 U/L (38-126); Blood Urea Nitrogen 30 mg/dl (9-20); Calcium 9.3 mg/dl (8.4-10.2); Carbon Dioxide 28 mmol/L (22-30); Chloride 104 mmol/L (98-107); Glucose 110 mg/dl (70-99); Potassium 4.0 mmol/L (3.5-5.1); Sodium 141 mmol/L (135-145); Total Protein 7.3 g/dl (6.3-8.2); eGFR > 60.00
--- NOTE | 2025-02-16 18:46 | ED.GENMED ---
History of Present Illness
General
Chief Complaint: Skin Problem
Source: patient and spouse
Exam Limitations: none
Time Seen by Provider: 02/16/25 17:29
Nursing documentation reviewed up to this point in time: agreed with
History of Present Illness
History of Present Illness:
79-year-old male referred from an urgent care
3 days of redness and swelling of his right great toe, not diabetic, no trauma does get his toes cut every few months from a staff attorney as he said ingrown toes previously none recently no fever no drainage,
Past History
Past History
ED Past Medical History: CAD, HTN, Hypercholesterolemia, Psychiatric (anxiety/bipolar), Other (Parkinson's, sleep apnea/CPAP) and Other (, bipolar, 'Balance problems')
ED Past Surgical History: Cardiac (Stent), Cholecystectomy and Orthopedic (Back surgery 2009)
Social History
Tobacco: Non-smoker
Alcohol: Occasional
Drug: None
Personal:
Living: with family
Employment: Retired
Family History
Family History: Other (mother and uncles with brain tumors, father with a mitral valve replacement)
Phy Exam
Physical Exam
Physical Exam:
Physical Exam
General: no apparent distress, not acutely ill
Neck: No jaundice
Heart: s1/s2 regular rate and rhythm, no murmur. equal radial pulses.
Lungs: no acute respiratory distress. clear bilaterally
Neuro: alert and oriented. no focal neurological deficits
Skin: no rash
Psychiatric: well kept. interactive and cooperative
Extremities: Redness cellulitic changes extensor surface of the right great toe no fluctuance, no ingrown toenail, no cellulitic changes into the foot or ankle
Course
Orders/Labs/Results
Orders:
Orders
02/16/25 15:30
CMP [Comprehensive Metabolic Panel] Urgent
Complete Blood Count/With Diff Urgent
02/16/25 17:30
Foot, Right 3 View [CR Foot - Right Min 3 Views] Urgent
Comment:
Reason For Exam: swelling
02/16/25 18:26
CeFAZolin 2 GRAM [Ancef] 2 grams in 10 ml IV NOW
Abnormal Lab Results
02/16/25
15:30
RBC 3.88 L 10^6/uL
(4.70-6.10)
Hgb 11.7 L g/dL
(13.0-18.0)
Hct 35.4 L %
(39.0-52.0)
Absolute Monos (auto) 0.7 H 10^3/uL
(0.1-0.6)
Monocytes % 12.4 H %
(1.7-9.3)
BUN 30 H mg/dl
(9-20)
Glucose 110 H mg/dl
(70-99)
02/16/25 15:30
02/16/25 15:30
Vital Signs
Initial and Last Documented VS:
Initial Vital Signs
Temp Pulse Resp BP Pulse Ox
97.9 F 61 18 151/53 95
02/16/25 15:22 02/16/25 15:22 02/16/25 15:22 02/16/25 15:22 02/16/25 15:22
Last Documented Vital Signs
Temp Pulse Resp BP Pulse Ox
97.9 F 61 18 151/53 95
02/16/25 15:22 02/16/25 15:22 02/16/25 15:22 02/16/25 15:22 02/16/25 18:47
*Pulse Oximetry
SaO2: 95
Oxygen Mode of Delivery: Room air
Patient hypoxic: no
*Critical Care Note
Total Time (30-74mins, 75-104mins- exclusive of procedures): Not Applicable
ED Attending Note
-
Portions of this chart may have been created with voice recognition software.� Occasional wrong word or��sound alike� substitutions may have occurred due to the inherent limitations of voice recognition software.
Discharge Plan
Departure
Patient Disposition: Home (Routine Discharge)
Date of Disposition: 02/16/25
Time of Disposition: 18:45
Patient with high blood pressure during this ER visit?: No
Condition: Good
Covid-19: Not Applicable
Discharge Problem:
Cellulitis
Instructions: Cellulitis (Skin Infection), Adult (DC)
Prescriptions:
New
cephalexin 500 mg capsule
500 mg PO Q6H 10 Days Qty: 40 0RF
No Action
lovastatin 40 MG tablet
40 mg PO HS
metoprolol succinate [Toprol XL] 50 mg Tablet Extended Release 24 Hr
50 mg PO DAILY
lamotrigine [Lamictal] 25 mg Tablet
50 mg PO DAILY
lamotrigine [Lamictal] 25 mg Tablet
75 mg PO HS
divalproex [Depakote ER] 500 mg Tablet Extended Release 24 Hr
2,000 mg PO HS
aspirin 325 mg Tablet
325 mg PO HS Qty: 0 0RF
furosemide [Lasix] 40 mg Tablet
40 mg PO DAILY
amoxicillin-pot clavulanate 875-125 mg Tablet
1 tab PO Q12 10 Days Qty: 20 0RF
acetaminophen 325 mg Tablet
650 mg PO Q4HPRN PRN (Reason: Mild Pain / Temp > 101 F) Qty: 0 0RF
ipratropium-albuterol 0.5 mg-3 mg(2.5 mg base)/3 mL Solution For Nebulization
3 ml inhalation R Q4HPRN PRN (Reason: SOB) Qty: 0 0RF
Referrals:
Chele Jules MD [Family Provider, Family Practice]
Activity Restrictions/Additional Instructions:
Keep your toe covered, use antibiotic ointment, start Keflex 4 times a day
Follow-up with your family doctor and/or staff attorney
Return to the ER if worsening symptoms
Discharge Date and Time
Print Language: SYRIAC
[2025-02-16] MEDS: ANCEF 10 IV (19:01)
== END 2025-02-16 19:00 | disposition home or self-care (01) ==
LOC: EMR 15:20
PROVIDERS: EMERGENCY PHYSICIAN Emergency Medicine; FAMILY PHYSICIAN Family Medicine
DX: L03.031 Cellulitis of right toe (principal); I25.10 Atherosclerotic heart disease of native coronary artery without angina pectoris; I10 Essential (primary) hypertension; E78.00 Pure hypercholesterolemia, unspecified; G47.30 Sleep apnea, unspecified; G20.A1 Parkinson's disease without dyskinesia, without mention of fluctuations; F31.9 Bipolar disorder, unspecified; F41.9 Anxiety disorder, unspecified; Z95.5 Presence of coronary angioplasty implant and graft; Z82.49 Family history of ischemic heart disease and other diseases of the circulatory system
CPT/HCPCS: 99284; 96374; 73630; 80053; 85025